=== PATIENT | female | born 1965 | race Caucasian/White ===

== ENCOUNTER 2017-07-16 11:43 | Observation (INO) ==
--- NOTE | 2017-07-16 12:23 | Emergency Department Note ---
Disposition Clinical Impression: Severe hypothyroidism Disposition: Admitted As Inpatient Condition: Fair Referrals: NONE,PCP [Primary Care Provider] - Forms: ED Satisfaction Letter, Work/School Release Time of Disposition: 14:30 Dizziness HPI - General Chief Complaint: ED General Medical Stated Complaint: High blood pressure Time Seen by Provider: 07/16/17 11:45 Source: patient, family, EMS Mode of arrival: EMS Limitations: no limitations Vital Signs Reviewed: Yes - History of Present Illness HPI Narrative: Kaya Fischer is a 52 year old female presenting with progressive dizziness, weakness, and fatigue of one week duration. She states that the symptoms are especially bad when she stands. The family has been using a wrist blood pressure cuff to measure her pressure, and has found it to be in the 200s systolic. She admits nausea and chills, but denies chest pain, shortness of breath, vomiting, fevers, diaphoresis, and headache. It has been at least 7 years since she's seen a primary care doctor, and the only medication she takes is metformin. She does have a diagnosis of hypothyroidism but has not taken medication for it for years. - Related Data Home Medications Medication Instructions Recorded Confirmed metFORMIN [Glucophage] 500 - 1,000 mg PO BID 07/16/17 07/16/17 Allergies Allergy/AdvReac Type Severity Reaction Status Date / Time lisinopril AdvReac Chest Pain Verified 07/16/17 11:59 All systems ED: reviewed and negative except as stated. Constitutional: Reports: chills, weakness. Denies: fever Cardiovascular: Denies: chest pain, palpitations, dyspnea on exertion Respiratory: Denies: cough Gastrointestinal: Reports: nausea. Denies: abdominal pain, vomiting Neurological: Reports: weakness. Denies: headache, numbness, paresthesias, confusion Endocrine: Reports: fatigue Past Medical History - Past Medical History Medical history: Reports: diabetes, hypertension, renal disease, thyroid disease Psychiatric history: Reports: no psych history - Social History Smoking Status: Never smoker Smokeless Tobacco Status: No Alcohol use: Reports: none Drug use: Reports: none Physical Exam - General Limitations: no limitations General appearance: alert, in no apparent distress - Head Head exam: atraumatic, normocephalic - Respiratory Respiratory exam: Present: normal lung sounds bilaterally. Absent: respiratory distress, accessory muscle use - Cardiovascular Cardiovascular exam: Present: regular rate, normal rhythm, normal heart sounds, +S1, +S2 - Abdominal Exam Abdominal exam: Present: soft, Non-Tender - Neurological Exam Neurological exam: Present: alert, oriented X3, CN II-XII intact. Absent: motor sensory deficit - Psychiatric Psychiatric exam: Present: normal affect, normal mood - Skin Skin exam: Present: warm, dry Course Course Narrative: Patient presents with several days of worsening weakness and dizziness. Suspect that the 200+ systolic blood pressures that the family reported are due to inaccurate readings of the home cuff, as pressures have been in the 170s-low 180s both here in the ER and during transport with EMS. Unclear etiology on presentation. Initiated workup with CBC, CMP, BNP, TSH, troponin, EKG, urinalysis, CXR, and noncon head CT. TSH was elevated to 142.14. Other significant findings include Hgb to 8.9 and Cr to 1.28. Severe hypothyroidism is the most likely cause of the patient's symptoms. Case was discussed with the admitting hospitalist, who accepted the patient. Vital Signs Temperature 98 F 07/16/17 11:46 Pulse Rate 72 07/16/17 11:46 Respiratory Rate 18 07/16/17 11:46 Blood Pressure 173/101 07/16/17 11:46 O2 Sat by Pulse Oximetry 100 07/16/17 11:46 Temperature 98 F 07/16/17 11:46 Pulse Rate 60 07/16/17 16:30 Respiratory Rate 18 07/16/17 16:30 Blood Pressure 159/106 07/16/17 16:30 O2 Sat by Pulse Oximetry 99 07/16/17 16:30 Oxygen Delivery Oxygen Delivery Room Air Dizziness - Medical Records Medical records reviewed: Yes I reviewed the patient's medical records. - Lab Data Lab results reviewed: Yes I reviewed the patient's lab results. Result diagrams: 07/16/17 12:43 07/16/17 12:43 Lab Results 07/16/17 07/16/17 07/16/17 Range/Units 12:43 12:43 12:43 WBC 8.1 (4.3-11.1) K/mcL RBC 3.92 (3.82-4.97) M/mcL Hgb 8.9 L (11.5-15.4) g/dL Hct 29.1 L (35.3-44.9) % MCV 74.2 L (83.0-100.0) fL MCH 22.7 L (28.0-33.3) pg MCHC 30.6 L (31.6-35.5) g/dL RDW 17.8 H (11.5-14.5) % Plt Count 355 (140-400) K/mcL MPV 10.4 (9.4-12.4) fL Immature Gran % 0.5 (0-4) % Seg Neutrophils % 78.0 % Lymphocytes % 15.5 % Monocytes % 5.1 % Eosinophils % 0.5 % Basophils % 0.4 % Neutrophils # 6.3 (1.6-8.9) K/mcL Lymphocytes # 1.3 (0.6-4.6) K/mcL Monocytes # 0.4 (0.0-1.3) K/mcL Eosinophils # 0.0 (0.0-0.6) K/mcL Basophils # 0.0 (0.0-0.2) K/mcL Sodium 136 (136-145) mEq/L Potassium 4.5 (3.5-5.1) mEq/L Chloride 99 (98-107) mEq/L Carbon Dioxide 27 (23-29) mEq/L BUN 12 (6-20) mg/dL Creatinine 1.28 H (0.60-1.20) mg/dL Est GFR ( Amer) 53 L (> 60) Est GFR (Non-Af Amer) 44 L (> 60) BUN/Creatinine Ratio 9 (6-26) Glucose 125 H (70-105) mg/dL Calculated Osmolality 283 (280-300) Calcium 10.0 (8.6-10.3) mg/dL Total Bilirubin 0.4 (0.3-1.0) mg/dL AST 28 (13-39) Units/L ALT 9 (7-52) Units/L Alkaline Phosphatase 67 (34-104) Units/L Troponin I < 0.03 (< 0.04) ng/mL B-Natriuretic Peptide 34 (Less than 100) pg/mL Serum Total Protein 8.3 (6.4-8.9) g/dL Albumin 4.4 (3.5-5.7) g/dL Globulin 3.9 H (2.4-3.5) g/dL Albumin/Globulin Ratio 1.1 (1.1-2.2) TSH (0.340-5.600) mcIU/mL Urine Color (Yellow) Urine Clarity (Clear) Urine pH (5.0-8.0) pH Units Ur Specific [place] (1.010-1.025) Urine Protein (Neg-Trace) mg/dL Urine Glucose (UA) (Normal) mg/dL Urine Ketones (Negative) mg/dL Urine Blood (Negative) Urine Nitrite (Negative) Urine Bilirubin (Negative) Urine Urobilinogen (Normal) mg/dL Ur Leukocyte Esterase (Negative) Urine Microscopic RBC (0-3) per hpf Urine Microscopic WBC (0-3) per hpf Ur Squamous Epith Cells (None-Few) per lpf Urine Bacteria (None-Few) per hpf Hyaline Casts (None-Few) per lpf Ur Culture Indicated? (NO) 07/16/17 07/16/17 Range/Units 12:43 13:25 WBC (4.3-11.1) K/mcL RBC (3.82-4.97) M/mcL Hgb (11.5-15.4) g/dL Hct (35.3-44.9) % MCV (83.0-100.0) fL MCH (28.0-33.3) pg MCHC (31.6-35.5) g/dL RDW (11.5-14.5) % Plt Count (140-400) K/mcL MPV (9.4-12.4) fL Immature Gran % (0-4) % Seg Neutrophils % % Lymphocytes % % Monocytes % % Eosinophils % % Basophils % % Neutrophils # (1.6-8.9) K/mcL Lymphocytes # (0.6-4.6) K/mcL Monocytes # (0.0-1.3) K/mcL Eosinophils # (0.0-0.6) K/mcL Basophils # (0.0-0.2) K/mcL Sodium (136-145) mEq/L Potassium (3.5-5.1) mEq/L Chloride (98-107) mEq/L Carbon Dioxide (23-29) mEq/L BUN (6-20) mg/dL Creatinine (0.60-1.20) mg/dL Est GFR ( Amer) (> 60) Est GFR (Non-Af Amer) (> 60) BUN/Creatinine Ratio (6-26) Glucose (70-105) mg/dL Calculated Osmolality (280-300) Calcium (8.6-10.3) mg/dL Total Bilirubin (0.3-1.0) mg/dL AST (13-39) Units/L ALT (7-52) Units/L Alkaline Phosphatase (34-104) Units/L Troponin I (< 0.04) ng/mL B-Natriuretic Peptide (Less than 100) pg/mL Serum Total Protein (6.4-8.9) g/dL Albumin (3.5-5.7) g/dL Globulin (2.4-3.5) g/dL Albumin/Globulin Ratio (1.1-2.2) TSH 142.140 H (0.340-5.600) mcIU/mL Urine Color Yellow (Yellow) Urine Clarity Clear (Clear) Urine pH 7.0 (5.0-8.0) pH Units Ur Specific [place] 1.011 (1.010-1.025) Urine Protein Negative (Neg-Trace) mg/dL Urine Glucose (UA) Normal (Normal) mg/dL Urine Ketones Negative (Negative) mg/dL Urine Blood Trace H (Negative) Urine Nitrite Negative (Negative) Urine Bilirubin Negative (Negative) Urine Urobilinogen Normal (Normal) mg/dL Ur Leukocyte Esterase Negative (Negative) Urine Microscopic RBC 0-3 (0-3) per hpf Urine Microscopic WBC 0-3 (0-3) per hpf Ur Squamous Epith Cells Many H (None-Few) per lpf Urine Bacteria None Seen (None-Few) per hpf Hyaline Casts None Seen (None-Few) per lpf Ur Culture Indicated? NO (NO) - Radiology Data Radiology results reviewed: Yes I reviewed the patient's radiology results. Chest X-Ray 07/16/17 11:56 IMPRESSION: No evidence of acute cardiopulmonary disease. D/ / Marshall Barraza MD / Marshall Barraza MD Interpreting Provider: Marshall Barraza MD Head CT 07/16/17 12:15 IMPRESSION: No acute intracranial abnormality. D/ / Sindhu Antonio Cha, MD / Sindhu Antonio Cha, MD Interpreting Provider: Sindhu Antonio Cha, MD - EKG Data EKG attestation: Yes I reviewed and interpreted this EKG. EKG results narrative: Borderline sinus bradycardia Rate 59 AK 154 QRS 95 QT/QTC 426/425 Critical Care Time Critical Care Time: Yes Total Critical Care Time: 35 Attestation: Critical care time managing patient's hypertension and severe thyroid dysfunction. Attestation Statement - Attestation Attestation: Patient was seen with resident physician. I reviewed the history, physical, assessment and plan, and agree with the findings. I also personally evaluated this patient and had [id number] time with this patient. 52-year-old female presents emergency Department with worsening dizziness and lightheadedness for the last week. Worse when she stands up or sits up quickly. Physical room is spinning. No near-syncope. No syncope. Family was concerned today because he been taking her blood pressure via a wrist cough and noticed it was elevated at greater than 200. Patient states that she has been on blood pressure medicine in the past after she takes him for a while her blood pressure drops to low so she has had to discontinue. She also states that she has thyroid disorder but she is not currently taking anything for that. The only thing she says she is taking his something for her diabetes. She denies fevers or chills though the family said that she was cold earlier this morning. No dysuria no nausea vomiting or diarrhea. Physical exam vital signs are stable. Blood pressure was not severely elevated though it did qualify her for hypertension. ENT is unremarkable. Heart normal. Lungs normal. Abdomen soft obese nontender. Extremities no swelling no obvious deformities. Neurologically intact no focal deficits. Skin no rashes. Psych, flat affect. We will do workup for week and dizziness. Including head CT scan. EKG did not show any acute ischemic changes or other abnormalities to explain her symptoms. We will also be checking thyroid variety of laboratory testing to determine what causing her problems. We did consider and closely monitor her blood pressure. It did not reach a point that required treatment emergently. Patient 's TSH was markedly elevated M inserting severe hypothyroidism. I think this is likely causative of her symptoms. We discussed case and the hospitalist service agreed to accept the patient for admission for correction of her abnormalities. I agree with the resident physician assessment and plan.
[2017-07-16 13:01] LABS: Basophils % 0.4 %; Eosinophils % 0.5 %; Hematocrit 29.1 % (35.3-44.9); Hemoglobin 8.9 g/dL (11.5-15.4); Immature Granulocytes % 0.5 % (0-4); Lymphocytes # 1.3 K/mcL (0.6-4.6); Lymphocytes % 15.5 %; Mean Corpuscular HGB Conc 30.6 g/dL (31.6-35.5); Mean Corpuscular Hemoglobin 22.7 pg (28.0-33.3); Mean Corpuscular Volume 74.2 fL (83.0-100.0); Mean Platelet Volume 10.4 fL (9.4-12.4); Monocytes # 0.4 K/mcL (0.0-1.3); Monocytes % 5.1 %; Neutrophils # 6.3 K/mcL (1.6-8.9); Platelet Count 355 K/mcL (140-400); Red Blood Count 3.92 M/mcL (3.82-4.97); Red Cell Distribution Width 17.8 % (11.5-14.5)
[2017-07-16 13:17] LABS: Alanine Aminotransferase 9 Units/L (7-52); Albumin 4.4 g/dL (3.5-5.7); Albumin/Globulin Ratio 1.1 (1.1-2.2); Alkaline Phosphatase 67 Units/L (34-104); Aspartate Amino Transferase 28 Units/L (13-39); BUN/Creatinine Ratio 9 (6-26); Bilirubin,Total 0.4 mg/dL (0.3-1.0); Blood Urea Nitrogen 12 mg/dL (6-20); Carbon Dioxide 27 mEq/L (23-29); Chloride 99 mEq/L (98-107); Globulin 3.9 g/dL (2.4-3.5); Glucose 125 mg/dL (70-105); Osmolality,Calculated 283 (280-300); Potassium 4.5 mEq/L (3.5-5.1); Sodium 136 mEq/L (136-145); Total Protein 8.3 g/dL (6.4-8.9); Troponin I < 0.03 ng/mL (< 0.04); eGFR For African Americans 53 (> 60); eGFR For Non-African Americans 44 (> 60)
[2017-07-16 13:55] LABS: Bilirubin,Urine Negative (Negative); Blood,Urine Trace (Negative); Clarity,Urine Clear (Clear); Color,Urine Yellow (Yellow); Glucose,Urine (UA) Normal (Normal); Ketones,Urine Negative (Negative); Leukocyte Esterase,Urine Negative (Negative); Nitrite,Urine Negative (Negative); Protein,Urine Negative (Neg-Trace); Specific Gravity,Urine 1.011 (1.010-1.025); Urobilinogen,Urine Normal (Normal)
[2017-07-16 13:59] LABS: Bacteria,Urine None Seen per hpf (None-Few); Hyaline Casts,Urine None Seen per lpf (None-Few); RBC,Urine 0-3 per hpf (0-3); Squamous Epithelial Cell,Urine Many per lpf (None-Few); WBC,Urine 0-3 per hpf (0-3)
[2017-07-16] MEDS ORDERED: Dextrose Gel 15 GM/37.5 ML TUBE PO PRN ×2 (16:58)
[2017-07-16] MEDS ORDERED: Naloxone 0.4 MG/ML INJ IVP PRN (16:58)
[2017-07-16] MEDS ORDERED: D5% in Water 1,000 ML IVC PRN (16:58)
[2017-07-16] MEDS ORDERED: *HR* Dextrose 50 % in Water (Syg) 50 ML SYRINGE IVP PRN (16:58)
--- NOTE | 2017-07-16 17:08 | Internal Med History&Physical ---
Addendum entered and electronically signed by Jhonny Arita 07/16/17 19:06: Synthroid 50 mcg IVP now, then daily. Transition to oral synthroid prior to discharge Original Note: <Jhonny Arita - Last Filed: 07/16/17 17:38> Date of Encounter: 07/16/17 Time of Encounter: 17:06 Internal Medicine - H&P: HPI Chief complaint: weakness, fatigue, dizziness, hypothyroidism Admitted From: Home Plans for Post Hospital Care: Home History of present illness: Ms. Fischer is a 52 year old female with a PMH of DM, HTN, stage III renal disease and hypothyroidism. She presents to [facility] today with 1 week history of progressive dizziness, weakness and fatigue. She states that her symptoms are aggravated by activity. She reports that she feels worse when she stands. Additionally, she is reporting systolic blood pressure in the 200s which is what prompted her to seek care in the ED today. She denies fever, chest pain, shortness of breath, nausea, vomiting, diaphoresis or extremity swelling/pain. She admits to fatigue, chills, and excessive sleeping pattern sometimes sleeping for almost 2 days. She states that she has had hypothyroidism for quite some time but has not taken Synthroid for approximately the last 7-8 years. She does not have a PCP or coordinator volunteer services. Workup in the ED today and a TSH of 142.140. Past Med Surg Social Fam HX - Past Medical History Medical history: diabetes, hypertension, renal disease, thyroid disease Psychiatric history: no psych history - Social History Smoking Status: Never smoker Smokeless Tobacco Status: No Alcohol use: none Drug use: none - Family History Mother Hx Family Cardiac Disorders: Yes (CAD) Internal Medicine - H&P: Meds metFORMIN [Glucophage] 500 - 1,000 mg PO BID 07/16/17 [History] 3 Allergy/AdvReac Type Severity Reaction Status Date / Time lisinopril AdvReac Chest Pain Verified 07/16/17 11:59 All Systems PM: A 10-system review of systems was performed and is negative for pertinent findings except as documented above in the HPI. - Constitutional Constitutional: chills, fatigue, lethargy, weakness - Cardiovascular Cardiovascular ROS IM: no chest pain, no diaphoresis, no dyspnea, no lightheadedness, no palpitations, no syncope - Respiratory Respiratory: no cough, no dyspnea, no wheezing, no excessive phlegm production - Gastrointestinal Gastrointestinal: no abdominal pain, no diarrhea, no hematemesis, no hematochezia, no melena, no nausea, no vomiting - Genitourinary Genitourinary: no change in urinary stream, no dysuria, no flank pain, no hematuria - Musculoskeletal Musculoskeletal ROS IM: no numbness, no tingling - Integumentary Integumentary IM: no rash, no unusual bruising - Neurological Neurological ROS: dizziness, weakness - Constitutional Vitals: Temp Pulse Resp BP Pulse Ox 98 F 60 18 159/106 99 07/16/17 11:46 07/16/17 16:30 07/16/17 16:30 07/16/17 16:30 07/16/17 16:30 General appearance: Present: cooperative, A&O X 3, morbidly obese, no acute distress, answers questions appropriately Exam: Lethargic - Head Head exam: Present: atraumatic, normocephalic - Eye Eye exam: Present: EOMI, PERRL - Neck Neck exam general surgery: Present: supple, trachea midline. Absent: lymphadenopathy - Respiratory Respiratory exam: Present: CTAB. Absent: accessory muscle use, rales, rhonchi, wheezes - Cardiovascular Cardiovascular exam: Present: bradycardia, RRR, +S1, +S2. Absent: diastolic murmur, gallop, rubs, systolic murmur - GI/Abdominal GI/Abdominal exam: Present: hypoactive bowel sounds, normal bowel sounds, soft, no peritoneal signs. Absent: distended, tenderness - Extremities Exam Extremities exam: Present: joint swelling, normal capillary refill, normal inspection, radial pulses palpable and symmetrical. Absent: tenderness - Neurological Exam Neurological exam: Present: alert, oriented X3, strengths equal and symetr throughout. Absent: facial droop, speech deficit - Skin Skin exam: Present: dry, intact Additional comments: Cool Internal Med - H&P Results - Labs CBC & Chem 7: 07/16/17 12:43 07/16/17 12:43 Labs: Short CBC 07/16/17 Range/Units 12:43 WBC 8.1 (4.3-11.1) K/mcL Hgb 8.9 L (11.5-15.4) g/dL Hct 29.1 L (35.3-44.9) % Plt Count 355 (140-400) K/mcL Neutrophils # 6.3 (1.6-8.9) K/mcL BMP 07/16/17 12:43 Sodium 136 Potassium 4.5 Chloride 99 Carbon Dioxide 27 BUN 12 Creatinine 1.28 H Glucose 125 H Calcium 10.0 Cardiac Enzymes 07/16/17 Range/Units 12:43 Troponin I < 0.03 (< 0.04) ng/mL Liver Function 07/16/17 Range/Units 12:43 Total Bilirubin 0.4 (0.3-1.0) mg/dL AST 28 (13-39) Units/L ALT 9 (7-52) Units/L Alkaline Phosphatase 67 (34-104) Units/L Albumin 4.4 (3.5-5.7) g/dL Urine 07/16/17 Range/Units 13:25 Urine Color Yellow (Yellow) Urine Clarity Clear (Clear) Urine pH 7.0 (5.0-8.0) pH Units Ur Specific [place] 1.011 (1.010-1.025) Urine Protein Negative (Neg-Trace) mg/dL Urine Glucose (UA) Normal (Normal) mg/dL - EKG Data -: EKG Interpreted by Myself EKG shows normal: sinus rhythm Rate: bradycardia - EKG Data EKG comments: SB, no st elevation or depression. NC 154, QRS95, QT/QTC 426/425 07/16/17 17:12 - Impressions ITS Impressions Chest X-Ray 07/16/17 11:56 IMPRESSION: No evidence of acute cardiopulmonary disease. D/ / Marshall Barraza MD / Marshall Barraza MD Interpreting Provider: Marshall Barraza MD Head CT 07/16/17 12:15 IMPRESSION: No acute intracranial abnormality. D/ / Sindhu Antonio Cha, MD / Sindhu Antonio Cha, MD Interpreting Provider: Sindhu Antonio Cha, MD - Assessment and plan (1) Severe hypothyroidism Current Visit: Yes Status: Acute Assessment and plan: Presents today with a one-week history of profound dizziness, weakness and fatigue. She is mildly lethargic but overall alert and oriented 3. Has a history of primary hypothyroidism. However, she reports that she has not been taking her thyroid medication for at least the last 8 years. She does not have a PCP and does not follow with an coordinator volunteer services and appears to be very negligent in regards to self-care. As of my assessment the patient is alert and oriented 3 but somewhat lethargic however, she is able to participate in the examination. Per ECG tracing monitor and auscultation the patient is bradycardic, S1, S2. TSH 142.140 Free T4 now Closely monitor neuro status Resume synthroid Continuous tele, and Spo2 monitoring CBCD, CMP in the am (2) DM (diabetes mellitus) Current Visit: Yes Status: Acute Assessment and plan: Sliding scale insulin coverage Before meals at bedtime Accu-Cheks with diabetic diet Qualifiers: Diabetes mellitus type: type 2 Diabetes mellitus lobsterman insulin use: without alf use Diabetes mellitus complication status: without complication Qualified Code(s): E11.9 - Type 2 diabetes mellitus without complications (3) HTN (hypertension) Current Visit: Yes Status: Acute Assessment and plan: History of hypertension. Does not take medication at home. Today's SBP has been as high as 170s. However most current blood pressure 159/106. Here today for myxedema. At this time I will refrain from placing her on antihypertensive medications. Continue to monitor hemodynamic status and add antihypertensives if needed Qualifiers: Hypertension type: essential hypertension Qualified Code(s): I10 - Essential (primary) hypertension (4) CKD (chronic kidney disease) stage 3, GFR 30-59 ml/min Current Visit: Yes Status: Acute Assessment and plan: History of CKD stage III. 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 Also reporting she does not follow with a PCP. No baseline creatinine on file. Today's creatinine 1.28 and GFR 44. CMP in the morning (5) DVT prophylaxis Current Visit: Yes Status: Acute Assessment and plan: Heparin 5000 units SC BID (6) Anemia Current Visit: Yes Status: Acute Assessment and plan: Presents today with a microcytic hypochromic anemia. Hemoglobin 8.9. Denies any bleeding and is currently hemodynamically stable. 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 B-12 and folate now CBC D in the morning Qualifiers: Anemia type: unspecified type Qualified Code(s): D64.9 - Anemia, unspecified - Time Spent With Patient Total time spent is greater than 50% in coordination of care (as documented) at patient's floor/unit and/or counseling patient: Greater than 35 minutes <DavidFlo T - Last Filed: 07/17/17 00:32> Date of Encounter: 07/17/17 Internal Medicine - H&P: HPI History of present illness: Ms. Fischer is a 52 year old female All Systems PM: A 10-system review of systems was performed and is negative for pertinent findings except as documented above in the HPI. - Constitutional Vitals: Temp Pulse Resp BP Pulse Ox 98.1 F 64 16 173/95 96 07/16/17 19:13 07/16/17 19:13 07/16/17 19:13 07/16/17 19:13 07/16/17 19:13 Internal Med - H&P Results - Labs CBC & Chem 7: 07/16/17 12:43 07/16/17 12:43 - Attending Attestation The patient was independently examined and her available records, labs and tests were reviewed. I agree with the ORDER PICKER's A&P. - Assessment and plan (1) Severe hypothyroidism Current Visit: Yes Status: Acute (2) DM (diabetes mellitus) Current Visit: Yes Status: Acute Qualifiers: Diabetes mellitus type: type 2 Diabetes mellitus alf insulin use: without alf use Diabetes mellitus complication status: without complication Qualified Code(s): E11.9 - Type 2 diabetes mellitus without complications (3) HTN (hypertension) Current Visit: Yes Status: Acute Qualifiers: Hypertension type: essential hypertension Qualified Code(s): I10 - Essential (primary) hypertension (4) CKD (chronic kidney disease) stage 3, GFR 30-59 ml/min Current Visit: Yes Status: Acute (5) DVT prophylaxis Current Visit: Yes Status: Acute (6) Anemia Current Visit: Yes Status: Acute Qualifiers: Anemia type: unspecified type Qualified Code(s): D64.9 - Anemia, unspecified - Time Spent With Patient Total time spent is greater than 50% in coordination of care (as documented) at patient's floor/unit and/or counseling patient:
[2017-07-16] MEDS: *HR* Heparin 5,000 UNIT/ML VIAL SQ SCH (18:14)
[2017-07-16] MEDS: Levothyroxine Sodium 100 MCG VIAL IVP SCH (19:23)
[2017-07-16] MEDS: Insulin LISPRO 300 UNITS/3 ML VIAL SQ SCH (21:18)
[2017-07-17 04:21] LABS: Basophils % 0.4 %; Eosinophils # 0.1 K/mcL (0.0-0.6); Eosinophils % 1.2 %; Hematocrit 26.2 % (35.3-44.9); Immature Granulocytes % 0.1 % (0-4); Lymphocytes # 1.6 K/mcL (0.6-4.6); Lymphocytes % 24.1 %; Mean Corpuscular HGB Conc 30.5 g/dL (31.6-35.5); Mean Corpuscular Hemoglobin 22.3 pg (28.0-33.3); Mean Corpuscular Volume 73.2 fL (83.0-100.0); Mean Platelet Volume 10.5 fL (9.4-12.4); Monocytes # 0.5 K/mcL (0.0-1.3); Neutrophils # 4.5 K/mcL (1.6-8.9); Platelet Count 316 K/mcL (140-400); Red Blood Count 3.58 M/mcL (3.82-4.97); Red Cell Distribution Width 17.8 % (11.5-14.5); Segmented Neutrophils % 67.2 %
[2017-07-17 04:36] LABS: Albumin/Globulin Ratio 1.1 (1.1-2.2); Bilirubin,Total 0.3 mg/dL (0.3-1.0); Calcium 9.6 mg/dL (8.6-10.3); Globulin 3.5 g/dL (2.4-3.5); Potassium 3.5 mEq/L (3.5-5.1); Total Protein 7.5 g/dL (6.4-8.9)
[2017-07-17] MEDS: *HR* Heparin 5,000 UNIT/ML VIAL SQ SCH ×2 (06:02→17:14)
[2017-07-17] MEDS: Levothyroxine Sodium 100 MCG VIAL IVP SCH (06:03)
[2017-07-17] MEDS ORDERED: Levothyroxine Sodium 100 MCG VIAL IVP ONE (08:25)
[2017-07-17] MEDS: Insulin LISPRO 300 UNITS/3 ML VIAL SQ SCH ×4 (08:35→22:00)
[2017-07-17] MEDS: 0.9 % Sodium Chloride 1,000 ML IVC SCH ×2 (08:36→22:02)
--- NOTE | 2017-07-17 13:04 | Internal Med Progress Note ---
Date of Encounter: 07/17/17 Time of Encounter: 12:36 - Assessment and plan (1) Severe hypothyroidism Current Visit: Yes Status: Acute Assessment and plan: clinically improving increase to levothyroxine 75cmg IV qdaily continue tele monitoring will closely monitor BMP, O2 sat will repeat thyroid function tests after pt has received IV Levothyroxine for a couple of days will transition to PO Levothyroxine on discharge. (2) DM (diabetes mellitus) Current Visit: Yes Status: Acute Assessment and plan: Sliding scale insulin algorithm monitor FS and BG ADA diet Qualifiers: Diabetes mellitus type: type 2 Diabetes mellitus manager long term care insulin use: without intermediate use Diabetes mellitus complication status: without complication Qualified Code(s): E11.9 - Type 2 diabetes mellitus without complications (3) HTN (hypertension) Current Visit: Yes Status: Acute Assessment and plan: BP within acceptable range reported history of hypertension however not on any antihypertensive agents will continue to monitor Qualifiers: Hypertension type: essential hypertension Qualified Code(s): I10 - Essential (primary) hypertension (4) CKD (chronic kidney disease) stage 3, GFR 30-59 ml/min Current Visit: Yes Status: Acute Assessment and plan: Reported history of CKD unclear of baseline creatinine will start gentle IV fluids closely monitor renal function avoid nephrotoxic agents (5) DVT prophylaxis Current Visit: Yes Status: Acute Assessment and plan: Heparin SQ (6) Anemia Current Visit: Yes Status: Acute Assessment and plan: H&H low but acceptable no acute bleeding reported at this time will continue to closely monitor Qualifiers: Anemia type: unspecified type Qualified Code(s): D64.9 - Anemia, unspecified - Time Spent With Patient Total time spent is greater than 50% in coordination of care (as documented) at patient's floor/unit and/or counseling patient: - Subjective Interval history: Patient seen and examined with family present at bedside. Pt resting in bed and reports of feeling better compared to previous day. States she has not seen a physician in over 8 years. Denies any dizziness, lightheadness, chest pain, sob at this time. - Constitutional Vitals: Temp Pulse Resp BP Pulse Ox 98.8 F 64 18 110/70 94 07/17/17 11:00 07/17/17 11:00 07/17/17 11:00 07/17/17 11:00 07/17/17 11:00 General appearance: Present: cooperative, A&O X 3, morbidly obese, no acute distress, answers questions appropriately - Head Head exam: Present: atraumatic, normocephalic - Eye Eye exam: Present: conjuntiva pink, sclera anicteric (mild periorbital edema bilaterally) - Respiratory Respiratory exam: Present: CTAB. Absent: accessory muscle use, rales, rhonchi, wheezes - Cardiovascular Cardiovascular exam: Present: RRR, +S1, +S2. Absent: diastolic murmur, gallop, rubs, systolic murmur - GI/Abdominal GI/Abdominal exam: Present: normal bowel sounds, soft, no peritoneal signs. Absent: distended, tenderness - Extremities Exam Extremities exam: Present: warm, radial pulses palpable and symmetrical. Absent : calf tenderness, pedal edema - Neurological Exam Neurological exam: Present: oriented X3 Internal Medicine: Result - Labs CBC & Chem 7: 07/17/17 03:11 07/17/17 03:11 Labs: Short CBC 07/17/17 Range/Units 03:11 WBC 6.7 (4.3-11.1) K/mcL Hgb 8.0 L (11.5-15.4) g/dL Hct 26.2 L (35.3-44.9) % Plt Count 316 (140-400) K/mcL Neutrophils # 4.5 (1.6-8.9) K/mcL BMP 07/17/17 03:11 Sodium 135 L Potassium 3.5 Chloride 100 Carbon Dioxide 34 H BUN 13 Creatinine 1.39 H Glucose 163 H Calcium 9.6 Liver Function 07/17/17 Range/Units 03:11 Total Bilirubin 0.3 (0.3-1.0) mg/dL AST 19 (13-39) Units/L ALT 7 (7-52) Units/L Alkaline Phosphatase 62 (34-104) Units/L Albumin 4.0 (3.5-5.7) g/dL Consult Discharge Plan - Plan Referrals: Aguilar Billy MD [Non-Partnered Physician] -
[2017-07-18 06:00] LABS: Basophils % 0.5 %; Eosinophils # 0.2 K/mcL (0.0-0.6); Hematocrit 26.2 % (35.3-44.9); Immature Granulocytes % 0.4 % (0-4); Lymphocytes # 2.9 K/mcL (0.6-4.6); Lymphocytes % 36.8 %; Mean Corpuscular HGB Conc 30.5 g/dL (31.6-35.5); Mean Corpuscular Hemoglobin 22.9 pg (28.0-33.3); Mean Corpuscular Volume 74.9 fL (83.0-100.0); Mean Platelet Volume 10.5 fL (9.4-12.4); Monocytes # 0.6 K/mcL (0.0-1.3); Neutrophils # 4.2 K/mcL (1.6-8.9); Nucleated Red Blood Cells 0.3 /100 WBC (0); Platelet Count 330 K/mcL (140-400); Red Cell Distribution Width 17.8 % (11.5-14.5); Segmented Neutrophils % 53.3 %
[2017-07-18] MEDS: *HR* Heparin 5,000 UNIT/ML VIAL SQ SCH ×2 (06:17→17:24)
[2017-07-18] MEDS: Levothyroxine Sodium 100 MCG VIAL IVP SCH (06:19)
[2017-07-18 06:22] LABS: Calcium 9.3 mg/dL (8.6-10.3); Phosphorous 2.9 mg/dL (2.7-4.5); Potassium 3.6 mEq/L (3.5-5.1)
[2017-07-18] MEDS: Insulin LISPRO 300 UNITS/3 ML VIAL SQ SCH ×4 (09:13→20:25)
[2017-07-18] MEDS: 0.9 % Sodium Chloride 1,000 ML IVC SCH (12:33)
--- NOTE | 2017-07-18 16:37 | Internal Med Progress Note ---
Date of Encounter: 07/18/17 Time of Encounter: 16:35 - Assessment and plan (1) Severe hypothyroidism Current Visit: Yes Status: Acute Assessment and plan: clinically improving continue Levothyroxine 75cmg IV qdaily continue tele monitoring will closely monitor BMP, O2 sat will repeat thyroid function tests after pt has received IV Levothyroxine for a couple of days will transition to PO Levothyroxine on discharge. (2) DM (diabetes mellitus) Current Visit: Yes Status: Acute Assessment and plan: Sliding scale insulin algorithm monitor FS and BG ADA diet Qualifiers: Diabetes mellitus type: type 2 Diabetes mellitus long distance operator insulin use: without long distance operator use Diabetes mellitus complication status: without complication Qualified Code(s): E11.9 - Type 2 diabetes mellitus without complications (3) HTN (hypertension) Current Visit: Yes Status: Acute Assessment and plan: BP within acceptable range reported history of hypertension however not on any antihypertensive agents will continue to monitor Qualifiers: Hypertension type: essential hypertension Qualified Code(s): I10 - Essential (primary) hypertension (4) CKD (chronic kidney disease) stage 3, GFR 30-59 ml/min Current Visit: Yes Status: Acute Assessment and plan: Reported history of CKD unclear of baseline creatinine continue gentle IV fluids closely monitor renal function avoid nephrotoxic agents (5) DVT prophylaxis Current Visit: Yes Status: Acute Assessment and plan: Heparin SQ (6) Anemia Current Visit: Yes Status: Acute Assessment and plan: H&H low but acceptable no acute bleeding reported at this time will continue to closely monitor Qualifiers: Anemia type: unspecified type Qualified Code(s): D64.9 - Anemia, unspecified - Time Spent With Patient Total time spent is greater than 50% in coordination of care (as documented) at patient's floor/unit and/or counseling patient: - Subjective Interval history: Pt seen and examined at bedside. Reports of feeling better compared to previous day. States dizziness is almost resolved. reports of taking metformin at home but has been using her family member's medication Pt remains weak, will obtain PT evaluation - Constitutional Vitals: Temp Pulse Resp BP Pulse Ox 97.9 F 58 20 102/60 97 07/18/17 13:31 07/18/17 13:31 07/18/17 13:31 07/18/17 13:31 07/18/17 13:31 General appearance: Present: cooperative, A&O X 3, morbidly obese, no acute distress, answers questions appropriately - Head Head exam: Present: atraumatic, normocephalic - Eye Eye exam: Present: conjuntiva pink, sclera anicteric - Respiratory Respiratory exam: Present: CTAB. Absent: respiratory distress, wheezes - Cardiovascular Cardiovascular exam: Present: bradycardia, +S1, +S2 - GI/Abdominal GI/Abdominal exam: Present: normal bowel sounds, soft, no peritoneal signs. Absent: distended, tenderness - Extremities Exam Extremities exam: Present: warm, radial pulses palpable and symmetrical. Absent : calf tenderness, tenderness - Neurological Exam Neurological exam: Present: oriented X3 Internal Medicine: Result - Labs CBC & Chem 7: 07/18/17 05:27 07/18/17 05:27 Labs: Short CBC 07/18/17 Range/Units 05:27 WBC 7.8 (4.3-11.1) K/mcL Hgb 8.0 L (11.5-15.4) g/dL Hct 26.2 L (35.3-44.9) % Plt Count 330 (140-400) K/mcL Neutrophils # 4.2 (1.6-8.9) K/mcL BMP 07/18/17 05:27 Sodium 137 Potassium 3.6 Chloride 104 Carbon Dioxide 27 BUN 15 Creatinine 1.46 H Glucose 125 H Calcium 9.3 Consult Discharge Plan - Plan Referrals: Aguilar reyes MD [Non-Partnered Physician] - 07/28/17 2:30 pm (Please follow up as schedule... Or call if you are not able to make the appt. [phone] Please bring your insurance and photo ID)
--- NOTE | 2017-07-19 00:19 | Electrocardiograph Report ---
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
[2017-07-19] MEDS: 0.9 % Sodium Chloride 1,000 ML IVC SCH (03:06)
[2017-07-19] MEDS: Levothyroxine Sodium 100 MCG VIAL IVP SCH (05:16)
[2017-07-19] MEDS: *HR* Heparin 5,000 UNIT/ML VIAL SQ SCH (05:16)
[2017-07-19 07:00] LABS: Basophils % 0.5 %; Eosinophils # 0.2 K/mcL (0.0-0.6); Eosinophils % 2.5 %; Hemoglobin 7.9 g/dL (11.5-15.4); Immature Granulocytes % 0.3 % (0-4); Lymphocytes # 2.4 K/mcL (0.6-4.6); Lymphocytes % 32.3 %; Mean Corpuscular HGB Conc 30.4 g/dL (31.6-35.5); Mean Corpuscular Hemoglobin 22.6 pg (28.0-33.3); Mean Corpuscular Volume 74.5 fL (83.0-100.0); Mean Platelet Volume 10.6 fL (9.4-12.4); Monocytes # 0.6 K/mcL (0.0-1.3); Monocytes % 8.1 %; Neutrophils # 4.1 K/mcL (1.6-8.9); Platelet Count 291 K/mcL (140-400); Red Blood Count 3.49 M/mcL (3.82-4.97); Red Cell Distribution Width 17.9 % (11.5-14.5); Segmented Neutrophils % 56.3 %
[2017-07-19 07:41] LABS: BUN/Creatinine Ratio 12 (6-26); Blood Urea Nitrogen 15 mg/dL (6-20); Calcium 9.1 mg/dL (8.6-10.3); Carbon Dioxide 26 mEq/L (23-29); Chloride 105 mEq/L (98-107); Glucose 115 mg/dL (70-105); Osmolality,Calculated 286 (280-300); Phosphorous 3.2 mg/dL (2.7-4.5); Potassium 3.7 mEq/L (3.5-5.1); Sodium 137 mEq/L (136-145); eGFR For African Americans 53 (> 60); eGFR For Non-African Americans 44 (> 60)
[2017-07-19] MEDS: Insulin LISPRO 300 UNITS/3 ML VIAL SQ SCH ×2 (10:01→12:24)
[2017-07-19 11:08] LABS: Estimated Average Glucose 160 mg/dl; Hemoglobin A1C 7.2 %
[2017-07-19 11:14] VITALS: BP 146/87
--- NOTE | 2017-07-19 13:11 | Discharge Summary ---
- NOTES TO OUTPATIENT PROVIDER Notes to Outpatient Provider: Please monitor thyroid function tests. She was noted to have TSH of 142.14 and free T4 <0.25. She was started on Levothyroxine 150mcg. Please repeat Thyroid function tests as outpatient. Also needs endocrinology evaluation. HbA1C: 7.2. Pt will be discharged with Metformin 500mg PO BID. Please address her DM medications after your evaluation. f/u anemia workup. Date of Encounter: 07/19/17 Time of Encounter: 13:09 - Discharge Diagnosis (1) Severe hypothyroidism Priority: Primary Status: Acute (2) DM (diabetes mellitus) Priority: Secondary Status: Acute Qualifiers: Diabetes mellitus type: type 2 Diabetes mellitus snf insulin use: without adjunct faculty for medical terminology use Diabetes mellitus complication status: without complication Qualified Code(s): E11.9 - Type 2 diabetes mellitus without complications (3) HTN (hypertension) Priority: Secondary Status: Chronic Qualifiers: Hypertension type: essential hypertension Qualified Code(s): I10 - Essential (primary) hypertension (4) CKD (chronic kidney disease) stage 3, GFR 30-59 ml/min Priority: Secondary Status: Chronic (5) DVT prophylaxis Priority: Secondary Status: Acute (6) Anemia Priority: Secondary Status: Chronic Qualifiers: Anemia type: unspecified type Qualified Code(s): D64.9 - Anemia, unspecified Hospital course: Ms. Fischer is a 52 year old female with PMH of DM, HTN, CKD who was admitted for severe hypothyroidism. Pt was found to have elevated TSH levels and reported of not seeing a physician for the last 8 years. She reported of taking family member's metformin. She reported history of hypertension but was not on any antihypertensive agents. Her BP remained within acceptable range despite her being off antihypertensive agents. She was started on IV levothyroxine. She responded well to therapy with complete resolution of her presenting symptoms. at this time she is back to her baseline and medically stable for discharge. Pt will be discharged to home today with follow up with PCP. Pt and family in agreement with the discharge care and plan. Discharge discussed with: patient, family, nurse - Time Spent with Patient Total time spent providing and/or coordinating discharge services: Less than 30 minutes - Discharge Medications Prescriptions: Levothyroxine [Synthroid] 150 mcg PO DAILY #30 tablet metFORMIN [Glucophage] 500 mg PO BIDWM #60 tablet Home Medications: Levothyroxine [Synthroid] 150 mcg PO DAILY #30 tablet 07/19/17 [Rx] metFORMIN [Glucophage] 500 mg PO BIDWM #60 tablet 07/19/17 [Rx] Allergies/Adverse Reactions: 3 Allergy/AdvReac Type Severity Reaction Status Date / Time lisinopril AdvReac Chest Pain Verified 07/16/17 11:59 Date of admission: 07/16/17 17:23 Primary care physician: PCP NONE Discharging clinician: Yaima Lux Anticipated date of discharge: 07/19/17 - Constitutional Vitals: Temp Pulse Resp BP Pulse Ox 98.1 F 71 18 146/87 97 07/19/17 11:00 07/19/17 11:00 07/19/17 11:00 07/19/17 11:00 07/19/17 11:00 General appearance: Present: cooperative, A&O X 3, morbidly obese, no acute distress, answers questions appropriately - Head Head exam: Present: atraumatic, normocephalic - Eye Eye exam: Present: conjuntiva pink, sclera anicteric - Respiratory Respiratory exam: Present: CTAB. Absent: accessory muscle use, rales, rhonchi, wheezes - Cardiovascular Cardiovascular exam: Present: RRR, +S1, +S2. Absent: diastolic murmur, gallop, rubs, systolic murmur - GI/Abdominal GI/Abdominal exam: Present: normal bowel sounds, soft, no peritoneal signs. Absent: distended, tenderness - Extremities Exam Extremities exam: Present: warm, radial pulses palpable and symmetrical. Absent : calf tenderness, pedal edema - Neurological Exam Neurological exam: Present: oriented X3 - Psychiatric Psychiatric exam: Present: normal affect, normal mood - Patient Status Disposition: Home, Self-Care Condition: Good Functional capacity at discharge: independent ambulation Overall status at discharge: patient is back to baseline - Discharge Instructions Instructions: Hypothyroidism (DC), Diabetes Mellitus Type 2 in Adults (DC), Chronic Hypertension (DC) Follow Up With: [facility] [place] [Provider Group] (Please have your PCP refer you to the [facility] to schedule an appointment, unless your PCP feels comfortable managing you.) Aguilar Billy MD [Non-Partnered Physician] - 07/28/17 2:30 pm (Please follow up as schedule... Or call if you are not able to make the appt. [phone] Please bring your insurance and photo ID) Additional Instructions: Please follow up with your primary care physician within five days after your discharge from the hospital. Please continue to take Levothyroxine and Metformin as prescribed. - Diet and Activity Activity: resume usual activities as tolerated Diet: low salt diet
[2017-07-19 13:35] LABS: % Iron Saturation 4 % (15-50); Ferritin < 8 ng/ml (10-120); Iron 17 mcg/dL (50-170); Transferrin 345 mg/dL (203-362)
== END 2017-07-19 15:03 | disposition home or self-care (01) ==
LOC: EMEROO 11:43 → 2ANU 11:43
PROVIDERS: ADMIT Nurse Practitioner; ATTEND Internal Medicine

== ENCOUNTER 2018-07-13 09:50 | Observation (INO) ==
--- NOTE | 2018-07-13 10:14 | Emergency Department Note ---
Disposition Clinical Impression: Weakness, Left facial numbness, Vision changes Disposition: Admitted As Inpatient Condition: Good Time of Disposition: 20:58 General Adult HPI - General Chief complaint: ED Headache Stated complaint: Hypertension Time Seen by Provider: 07/13/18 09:55 Source: patient Limitations: no limitations - History of Present Illness Pain Scale: 3 - Related Data Home Medications Medication Instructions Recorded Confirmed Lisinopril 5 mg PO DAILY 07/02/18 07/02/18 Previous Rx's Medication Instructions Recorded RX: Levothyroxine [Synthroid] 150 mcg PO DAILY #30 tablet 07/19/17 RX: metFORMIN [Glucophage] 500 mg PO BIDWM #60 tablet 07/19/17 RX: GuaiFENesin/Dextromethorphan 10 ml PO QID PRN #240 ml 07/02/18 [Tussin Dm Syrup] Allergies Allergy/AdvReac Type Severity Reaction Status Date / Time Iodinated Contrast- Oral and Allergy See Verified 07/13/18 14:53 IV Dye Comments Past Medical History - Past Medical History Medical history: Reports: diabetes, hypertension, thyroid disease Psychiatric history: Reports: no psych history - Social History Smoking Status: Never smoker Smokeless Tobacco Status: No Alcohol use: Reports: none Drug use: Reports: none Physical Exam - General Limitations: no limitations General appearance: alert, in no apparent distress Course Vital Signs Temperature 97.8 F 07/13/18 09:54 Pulse Rate 79 07/13/18 09:54 Respiratory Rate 18 07/13/18 09:54 Blood Pressure 188/122 07/13/18 09:54 O2 Sat by Pulse Oximetry 98 07/13/18 09:54 Temperature 98.8 F 07/13/18 18:32 Pulse Rate 81 07/13/18 18:32 Respiratory Rate 18 07/13/18 18:32 Blood Pressure 144/65 07/13/18 18:32 O2 Sat by Pulse Oximetry 98 07/13/18 18:32 Oxygen Delivery Oxygen Delivery Room Air Medical Decision Making - Lab Data Result diagrams: 07/13/18 10:19 07/13/18 10:19 Lab Results 07/13/18 07/13/18 07/13/18 Range/Units 10:10 10:17 10:19 WBC 10.3 (4.3-11.1) K/mcL RBC 4.60 (3.82-4.97) M/mcL Hgb 8.9 L (11.5-15.4) g/dL Hct 29.8 L (35.3-44.9) % MCV 64.8 L (83.0-100.0) fL MCH 19.3 L (28.0-33.3) pg MCHC 29.9 L (31.6-35.5) g/dL RDW 20.1 H (11.5-14.5) % Plt Count 545 H (140-400) K/mcL MPV 9.4 (9.4-12.4) fL Immature Gran % 0.4 (0-4) % Seg Neutrophils % 73.7 % Lymphocytes % 18.6 % Monocytes % 6.2 % Eosinophils % 0.8 % Basophils % 0.3 % Neutrophils # 7.6 (1.6-8.9) K/mcL Lymphocytes # 1.9 (0.6-4.6) K/mcL Monocytes # 0.6 (0.0-1.3) K/mcL Eosinophils # 0.1 (0.0-0.6) K/mcL Basophils # 0.0 (0.0-0.2) K/mcL Platelet Estimate Slight increase H (Normal) Immature Plt Fraction 2.3 (1.1-6.1) % Hypochromasia Present A (Not Present) Microcytosis Present A (Not Present) Ovalocytes 1+ A (Not Present) ESR (0-15) mm/hr PT 10.5 (9.4-12.1) Seconds INR 0.9 APTT 32.6 (26.0-36.0) Seconds Sodium (136-145) mEq/L Potassium (3.5-5.1) mEq/L Chloride (98-107) mEq/L Carbon Dioxide (23-29) mEq/L BUN (6-20) mg/dL Creatinine (0.60-1.20) mg/dL Est GFR ( Amer) (> 60) Est GFR (Non-Af Amer) (> 60) BUN/Creatinine Ratio (6-26) Glucose (70-105) mg/dL POC Glucose 92 (70-99) mg/dL Est Mean Plasma Glucose mg/dl Hemoglobin A1c ( - 5.6) % Calculated Osmolality (280-300) Calcium (8.6-10.3) mg/dL Magnesium (1.6-2.6) mg/dL Troponin I (< 0.04) ng/mL C-Reactive Protein (Less than 10) mg/L TSH (0.340-5.600) mcIU/mL Urine Color (Yellow) Urine Clarity (Clear) Urine pH (5.0-8.0) pH Units Ur Specific Hailey (1.010-1.025) Urine Protein (Neg-Trace) mg/dL Urine Glucose (UA) (Normal) mg/dL Urine Ketones (Negative) mg/dL Urine Blood (Negative) Urine Nitrite (Negative) Urine Bilirubin (Negative) Urine Urobilinogen (Normal) mg/dL Ur Leukocyte Esterase (Negative) Ur Culture Indicated? (NO) 07/13/18 07/13/18 07/13/18 Range/Units 10:19 10:19 10:19 WBC (4.3-11.1) K/mcL RBC (3.82-4.97) M/mcL Hgb (11.5-15.4) g/dL Hct (35.3-44.9) % MCV (83.0-100.0) fL MCH (28.0-33.3) pg MCHC (31.6-35.5) g/dL RDW (11.5-14.5) % Plt Count (140-400) K/mcL MPV (9.4-12.4) fL Immature Gran % (0-4) % Seg Neutrophils % % Lymphocytes % % Monocytes % % Eosinophils % % Basophils % % Neutrophils # (1.6-8.9) K/mcL Lymphocytes # (0.6-4.6) K/mcL Monocytes # (0.0-1.3) K/mcL Eosinophils # (0.0-0.6) K/mcL Basophils # (0.0-0.2) K/mcL Platelet Estimate (Normal) Immature Plt Fraction (1.1-6.1) % Hypochromasia (Not Present) Microcytosis (Not Present) Ovalocytes (Not Present) ESR 95 H (0-15) mm/hr PT (9.4-12.1) Seconds INR APTT (26.0-36.0) Seconds Sodium 137 (136-145) mEq/L Potassium 4.0 (3.5-5.1) mEq/L Chloride 102 (98-107) mEq/L Carbon Dioxide 24 (23-29) mEq/L BUN 8 (6-20) mg/dL Creatinine 0.64 (0.60-1.20) mg/dL Est GFR ( Amer) > 60 (> 60) Est GFR (Non-Af Amer) > 60 (> 60) BUN/Creatinine Ratio 13 (6-26) Glucose 110 H (70-105) mg/dL POC Glucose (70-99) mg/dL Est Mean Plasma Glucose 171 mg/dl Hemoglobin A1c 7.6 H ( - 5.6) % Calculated Osmolality 283 (280-300) Calcium 9.6 (8.6-10.3) mg/dL Magnesium 1.4 L (1.6-2.6) mg/dL Troponin I < 0.03 (< 0.04) ng/mL C-Reactive Protein 30 H (Less than 10) mg/L TSH 0.680 (0.340-5.600) mcIU/mL Urine Color (Yellow) Urine Clarity (Clear) Urine pH (5.0-8.0) pH Units Ur Specific Hailey (1.010-1.025) Urine Protein (Neg-Trace) mg/dL Urine Glucose (UA) (Normal) mg/dL Urine Ketones (Negative) mg/dL Urine Blood (Negative) Urine Nitrite (Negative) Urine Bilirubin (Negative) Urine Urobilinogen (Normal) mg/dL Ur Leukocyte Esterase (Negative) Ur Culture Indicated? (NO) 07/13/18 Range/Units 12:25 WBC (4.3-11.1) K/mcL RBC (3.82-4.97) M/mcL Hgb (11.5-15.4) g/dL Hct (35.3-44.9) % MCV (83.0-100.0) fL MCH (28.0-33.3) pg MCHC (31.6-35.5) g/dL RDW (11.5-14.5) % Plt Count (140-400) K/mcL MPV (9.4-12.4) fL Immature Gran % (0-4) % Seg Neutrophils % % Lymphocytes % % Monocytes % % Eosinophils % % Basophils % % Neutrophils # (1.6-8.9) K/mcL Lymphocytes # (0.6-4.6) K/mcL Monocytes # (0.0-1.3) K/mcL Eosinophils # (0.0-0.6) K/mcL Basophils # (0.0-0.2) K/mcL Platelet Estimate (Normal) Immature Plt Fraction (1.1-6.1) % Hypochromasia (Not Present) Microcytosis (Not Present) Ovalocytes (Not Present) ESR (0-15) mm/hr PT (9.4-12.1) Seconds INR APTT (26.0-36.0) Seconds Sodium (136-145) mEq/L Potassium (3.5-5.1) mEq/L Chloride (98-107) mEq/L Carbon Dioxide (23-29) mEq/L BUN (6-20) mg/dL Creatinine (0.60-1.20) mg/dL Est GFR ( Amer) (> 60) Est GFR (Non-Af Amer) (> 60) BUN/Creatinine Ratio (6-26) Glucose (70-105) mg/dL POC Glucose (70-99) mg/dL Est Mean Plasma Glucose mg/dl Hemoglobin A1c ( - 5.6) % Calculated Osmolality (280-300) Calcium (8.6-10.3) mg/dL Magnesium (1.6-2.6) mg/dL Troponin I (< 0.04) ng/mL C-Reactive Protein (Less than 10) mg/L TSH (0.340-5.600) mcIU/mL Urine Color Yellow (Yellow) Urine Clarity Clear (Clear) Urine pH 6.5 (5.0-8.0) pH Units Ur Specific [place] 1.009 L (1.010-1.025) Urine Protein Negative (Neg-Trace) mg/dL Urine Glucose (UA) Normal (Normal) mg/dL Urine Ketones Negative (Negative) mg/dL Urine Blood Negative (Negative) Urine Nitrite Negative (Negative) Urine Bilirubin Negative (Negative) Urine Urobilinogen Normal (Normal) mg/dL Ur Leukocyte Esterase Negative (Negative) Ur Culture Indicated? NO (NO) Attestation Statement - Attestation Attestation: I examined this patient and my medical decision-making was reviewed with the Resident Physician. I agree with the documented findings, disposition and treatment plan as described except to the extent set forth below. [id number] time provided Patient presents to the emergency department with neurologic symptoms that started 3 hours ago. She complains of feeling dizzy and having subjective facial tingling. She recently reports labile blood sugars and hypertension. She appears to have general malaise on exam. Stroke alert activated given the temporal symptoms
--- NOTE | 2018-07-13 10:16 | Emergency Department Note ---
Disposition Clinical Impression: Weakness, Left facial numbness, Vision changes Disposition: Admitted As Inpatient Condition: Good Forms: ED Satisfaction Letter Time of Disposition: 13:12 Neuro HPI - General Chief Complaint: ED Headache Stated Complaint: Hypertension Time Seen by Provider: 07/13/18 09:55 Source: patient Mode of arrival: private vehicle Limitations: no limitations Nursing Notes Reviewed: Yes Vital Signs Reviewed: Yes - History of Present Illness HPI Narrative: Patient is a 53-year-old female with history of diabetes, hypothyroidism and hyp ertension presenting with generalized weakness and neurological changes. Last known well was 7 AM, when she had abrupt onset of left-sided blurry vision with left-sided change in sensation described as a numbness and decreased sensation which started at the middle of her face and progress to the entire left side of her face. She states this is continued since that time and has been constant. She denies any prior history of similar symptoms in the past. Prior to 7 AM she had no symptoms of facial numbness or vision changes. She has had generalized malaise and weakness since yesterday, she denies any upper or lower extremity weakness, numbness or further sensation changes. She also states she has a slight headache on the left side which began around 7 AM as well. She described this to be a dull sensation. She denies any chest pain, shortness of breath, recent trauma or injury, she is not on any anticoagulation medicine, she denies any abdominal pain, nausea or vomiting. Of note, starting yesterday her blood sugar was running in the 240s and her blood pressure is running around 180 systolic. She states this is unusual for her. - Related Data Home Medications: Home Medications Medication Instructions Recorded Confirmed Lisinopril 5 mg PO DAILY 07/02/18 07/02/18 Previous Rx's Medication Instructions Recorded Levothyroxine [Synthroid] 150 mcg PO DAILY #30 tablet 07/19/17 metFORMIN [Glucophage] 500 mg PO BIDWM #60 tablet 07/19/17 GuaiFENesin/Dextromethorphan 10 ml PO QID PRN #240 ml 07/02/18 [Tussin Dm Syrup] Allergies/Adverse Reactions: Allergies Allergy/AdvReac Type Severity Reaction Status Date / Time No Known Allergies Allergy Verified 07/02/18 11:43 All systems ED: reviewed and negative except as stated. Review of Systems: As Per HPI Constitutional: Denies: fever, chills ENT ED: Denies: congestion Cardiovascular: Denies: chest pain, palpitations, dyspnea on exertion Respiratory: Denies: cough, dyspnea, wheezes Gastrointestinal: Denies: abdominal pain, nausea, vomiting, diarrhea Genitourinary: Denies: urgency, dysuria, frequency Neurological: Reports: headache, weakness, numbness. Denies: confusion, abnormal gait Psychiatric: Denies: anxiety, depression Endocrine: Denies: fatigue Hematological/Lymphatic: Denies: easy bleeding Past Medical History - Past Medical History Attestation: Yes The following information was validated with the patient. Source: patient Medical history: Reports: diabetes, hypertension, thyroid disease Psychiatric history: Reports: no psych history - Social History Smoking Status: Never smoker Smokeless Tobacco Status: No Alcohol use: Reports: none Drug use: Reports: none Physical Exam - General Limitations: no limitations General appearance: alert, in no apparent distress - Head Head exam: atraumatic, normocephalic, normal inspection - Eye Eye exam: Present: normal appearance, PERRL, EOMI - ENT ENT exam: normal exam, normal oropharynx, mucous membranes moist - Neck Neck exam: Present: normal inspection, full ROM, trachea midline - Chest Chest inspection: Present: normal inspection, symmetric chest wall rise - Respiratory Respiratory exam: Present: normal lung sounds bilaterally - Cardiovascular Cardiovascular exam: Present: regular rate, normal rhythm, normal heart sounds - Abdominal Exam Abdominal exam: Present: soft, Non-Tender. Absent: tenderness, distention, guarding, rebound, rigidity - Extremities Exam Extremities exam: Present: normal inspection, full ROM. Absent: tenderness, pedal edema - Neurological Exam Neurological exam: Present: alert, oriented X3 - Expanded Neurological Exam Patient oriented to: Present: person, place, time Speech: Present: fluid speech Cranial nerves: EOM function (II, III, IV, ): Normal, facial sensation (V): Abnormal Left, facial palsy (VII): Normal, spinal accessory function (XI): Normal, tongue deviation (XII): Normal Cerebellar function: finger to nose: Normal, heel to valentine: Normal Motor strength - LUE: 5/5 Motor strength - RUE: 5/5 Motor strength - LLE: 5/5 Motor strength - RLE: 5/5 Upper motor neuron exam: dejon neglect: Absent bilaterally, pronator drift: Absent bilaterally Sensory exam upper extremity: light touch: Normal Sensory exam lower extremity: light touch: Normal Coma Scale Eye Opening: Spontaneous Coma Scale Motor Response: Obeys Commands Coma Scale Verbal Response: Oriented Coma Scale Total: 15 Course Course Narrative: On presentation, patient states that last while was just at 7 AM, this was about 3 hours prior to patient's arrival, given neurological symptoms are new onset for the patient which include left-sided numbness and decreased sensation with left sided headache and left sided vision changes, stroke alert was called at 1 012. - Consultations Consultation #1: Spoke with radiology at 1035, states that CT of the head shows no acute intracranial changes. Consultation #2: Neurology via telemedicine, states this point in time that he does not feel as though presentation represents stroke like symptoms with negative CT of the head, Stroke alert cancelled Time: 10:49 Vital Signs Temperature 97.8 F 07/13/18 09:54 Pulse Rate 79 07/13/18 09:54 Respiratory Rate 18 07/13/18 09:54 Blood Pressure 188/122 07/13/18 09:54 O2 Sat by Pulse Oximetry 98 07/13/18 09:54 Temperature 97.8 F 07/13/18 09:54 Pulse Rate 74 07/13/18 11:42 Respiratory Rate 18 07/13/18 11:42 Blood Pressure 146/85 07/13/18 11:42 O2 Sat by Pulse Oximetry 100 07/13/18 11:42 Oxygen Delivery Oxygen Delivery Room Air Neuro Symptoms/Deficit - MDM Narrative Medical decision making narrative: Patient is a 53-year-old female presenting with generalized weakness. On initial examination, patient stated that 3 hours prior to arrival she began to have acute onset left sided vision changes as well as left-sided facial numbness, no motor changes or lower extremity or upper extremity changes. Initial GCS was 15, NIH of 1. A stroke alert was called, with CT performed being read by radiology as no acute intracranial changes. Neurology via telemedicine was called for further patient follow-up, following their ex amination and recommendations, stroke alert was canceled, they stated that at this point transferred to [facility] was a not necessary, and further workup was warranted at [place]. Per their recommendations, patient is not a TPA candidate. CBC does show continued anemia at 8.9, however has been as low as 7 in the past. Appears to be about patient's baseline. She denies any current bleeding symptoms. BMP, troponin, TSH are all within normal limits. Patient is otherwise remained stable here in the ER. Repeat NIH remained of 1, at 1300. GCS of 15. Discussed admission with the patient, agrees with admission at this point in time. I did discuss this case with the hospitalist, who recommends replacing magnesium as that is 1.5, this is been replaced with 2 g of magnesium. Patient is remained stable be admitted at this time. - Medical Records Medical records reviewed: Yes I reviewed the patient's medical records. - Lab Data Lab results reviewed: Yes I reviewed the patient's lab results. Result diagrams: 07/13/18 10:19 07/13/18 10:19 Lab Results 07/13/18 07/13/18 07/13/18 Range/Units 10:10 10:19 10:19 WBC 10.3 (4.3-11.1) K/mcL RBC 4.60 (3.82-4.97) M/mcL Hgb 8.9 L (11.5-15.4) g/dL Hct 29.8 L (35.3-44.9) % MCV 64.8 L (83.0-100.0) fL MCH 19.3 L (28.0-33.3) pg MCHC 29.9 L (31.6-35.5) g/dL RDW 20.1 H (11.5-14.5) % Plt Count 545 H (140-400) K/mcL MPV 9.4 (9.4-12.4) fL Immature Gran % 0.4 (0-4) % Seg Neutrophils % 73.7 % Lymphocytes % 18.6 % Monocytes % 6.2 % Eosinophils % 0.8 % Basophils % 0.3 % Neutrophils # 7.6 (1.6-8.9) K/mcL Lymphocytes # 1.9 (0.6-4.6) K/mcL Monocytes # 0.6 (0.0-1.3) K/mcL Eosinophils # 0.1 (0.0-0.6) K/mcL Basophils # 0.0 (0.0-0.2) K/mcL Platelet Estimate Slight increase H (Normal) Immature Plt Fraction 2.3 (1.1-6.1) % Hypochromasia Present A (Not Present) Microcytosis Present A (Not Present) Ovalocytes 1+ A (Not Present) ESR (0-15) mm/hr PT 10.5 (9.4-12.1) Seconds INR 0.9 APTT 32.6 (26.0-36.0) Seconds Sodium 137 (136-145) mEq/L Potassium 4.0 (3.5-5.1) mEq/L Chloride 102 (98-107) mEq/L Carbon Dioxide 24 (23-29) mEq/L BUN 8 (6-20) mg/dL Creatinine 0.64 (0.60-1.20) mg/dL Est GFR ( Amer) > 60 (> 60) Est GFR (Non-Af Amer) > 60 (> 60) BUN/Creatinine Ratio 13 (6-26) Glucose 110 H (70-105) mg/dL Calculated Osmolality 283 (280-300) Calcium 9.6 (8.6-10.3) mg/dL Magnesium 1.4 L (1.6-2.6) mg/dL Troponin I < 0.03 (< 0.04) ng/mL C-Reactive Protein 30 H (Less than 10) mg/L TSH 0.680 (0.340-5.600) mcIU/mL Urine Color (Yellow) Urine Clarity (Clear) Urine pH (5.0-8.0) pH Units Ur Specific [place] (1.010-1.025) Urine Protein (Neg-Trace) mg/dL Urine Glucose (UA) (Normal) mg/dL Urine Ketones (Negative) mg/dL Urine Blood (Negative) Urine Nitrite (Negative) Urine Bilirubin (Negative) Urine Urobilinogen (Normal) mg/dL Ur Leukocyte Esterase (Negative) Ur Culture Indicated? (NO) 07/13/18 07/13/18 Range/Units 10:19 12:25 WBC (4.3-11.1) K/mcL RBC (3.82-4.97) M/mcL Hgb (11.5-15.4) g/dL Hct (35.3-44.9) % MCV (83.0-100.0) fL MCH (28.0-33.3) pg MCHC (31.6-35.5) g/dL RDW (11.5-14.5) % Plt Count (140-400) K/mcL MPV (9.4-12.4) fL Immature Gran % (0-4) % Seg Neutrophils % % Lymphocytes % % Monocytes % % Eosinophils % % Basophils % % Neutrophils # (1.6-8.9) K/mcL Lymphocytes # (0.6-4.6) K/mcL Monocytes # (0.0-1.3) K/mcL Eosinophils # (0.0-0.6) K/mcL Basophils # (0.0-0.2) K/mcL Platelet Estimate (Normal) Immature Plt Fraction (1.1-6.1) % Hypochromasia (Not Present) Microcytosis (Not Present) Ovalocytes (Not Present) ESR 95 H (0-15) mm/hr PT (9.4-12.1) Seconds INR APTT (26.0-36.0) Seconds Sodium (136-145) mEq/L Potassium (3.5-5.1) mEq/L Chloride (98-107) mEq/L Carbon Dioxide (23-29) mEq/L BUN (6-20) mg/dL Creatinine (0.60-1.20) mg/dL Est GFR ( Amer) (> 60) Est GFR (Non-Af Amer) (> 60) BUN/Creatinine Ratio (6-26) Glucose (70-105) mg/dL Calculated Osmolality (280-300) Calcium (8.6-10.3) mg/dL Magnesium (1.6-2.6) mg/dL Troponin I (< 0.04) ng/mL C-Reactive Protein (Less than 10) mg/L TSH (0.340-5.600) mcIU/mL Urine Color Yellow (Yellow) Urine Clarity Clear (Clear) Urine pH 6.5 (5.0-8.0) pH Units Ur Specific [place] 1.009 L (1.010-1.025) Urine Protein Negative (Neg-Trace) mg/dL Urine Glucose (UA) Normal (Normal) mg/dL Urine Ketones Negative (Negative) mg/dL Urine Blood Negative (Negative) Urine Nitrite Negative (Negative) Urine Bilirubin Negative (Negative) Urine Urobilinogen Normal (Normal) mg/dL Ur Leukocyte Esterase Negative (Negative) Ur Culture Indicated? NO (NO) - Radiology Data Radiology results reviewed: Yes I reviewed the patient's radiology results. Chest X-Ray 07/13/18 10:08 IMPRESSION: No acute cardiopulmonary disease. D/ / Chon Porter MD / Chon Porter MD Interpreting Provider: Chon Porter MD Head CT 07/13/18 10:10 IMPRESSION: No acute intracranial process identified. The above findings were discussed with Dr. Smiley at 10:35 a.m. on 07/13/2018. D/ / Dewayne Bird MD / Dewayne Bird MD Interpreting Provider: Dewayne Bird MD - EKG Data EKG attestation: Yes I reviewed and interpreted this EKG. EKG results narrative: EKG performed at 1040 with ventricular rate of 78, regular rhythm, normal axis, no ST segment elevation, depression, there is T-wave inversion in lead 3, and V6 which appears unchanged from previous performed in 07/16/2017 NIH Stroke Scale - Level of Consciousness LOC: Alert - LOC Questions LOC Questions: Answers both correctly - LOC Commands LOC Commands: Performs both correctly - Best Gaze Best Gaze: Normal - Visual Visual: No visual loss - Facial Palsy Facial Palsy: Normal - Motor Arms Motor Arm-Left: No drift for 10 seconds Motor Arm-Right: No drift for 10 seconds - Motor Legs Motor Leg-Left: No drift for 5 seconds Motor Leg-Right: No drift for 5 seconds - Limb Ataxia Limb Ataxia: Absent of affected limb too weak to perform exam - Sensory Sensory: Mild to moderate loss, "not as sharp" - Best Language Best Language: No aphasia - Dysarthria Dysarthria: Normal - Extinction and Inattention Extinction and Inattention: Normal - NIHSS Total Score NIHSS Total Score: 1 TPA Checklist - LKW: 3-4.5 hrs Add. Warnings/Precautions Patient/family understanding: The patient/family members have been counseled and understood the risk, benefit, and alternatives of treatment. S.B.A.R. - S.B.A.R. Situation: Demographics, MOA Background: Presenting Complaint, Relevant PMH, Meds, & Allergies Assessment: Vital Signs, Course and respsone to treatment, Exam Concerns, Patient/Family Expectation, Pertinant Lab Results, Outstanding Labs Recommendation: Barrier(s) to disposition, Recommendation based on pending studies, treatments, or consults Alondra Report Given to: Dr. Alfredo Cantu Repor Time: 13:12 (ACCEPTED)
[2018-07-13] MEDS ORDERED: Aspirin 81 MG TAB.CHEW PO ONE (10:26)
[2018-07-13 10:27] LABS: Basophils % 0.3 %; Hemoglobin 8.9 g/dL (11.5-15.4); Immature Granulocytes % 0.4 % (0-4); Mean Platelet Volume 9.4 fL (9.4-12.4)
[2018-07-13 10:29] LABS: Eosinophils # 0.1 K/mcL (0.0-0.6); Eosinophils % 0.8 %; Hematocrit 29.8 % (35.3-44.9); Immature Platelets 2.3 % (1.1-6.1); Lymphocytes # 1.9 K/mcL (0.6-4.6); Lymphocytes % 18.6 %; Mean Corpuscular HGB Conc 29.9 g/dL (31.6-35.5); Mean Corpuscular Hemoglobin 19.3 pg (28.0-33.3); Mean Corpuscular Volume 64.8 fL (83.0-100.0); Monocytes # 0.6 K/mcL (0.0-1.3); Monocytes % 6.2 %; Neutrophils # 7.6 K/mcL (1.6-8.9); Platelet Count 545 K/mcL (140-400); Red Cell Distribution Width 20.1 % (11.5-14.5); Segmented Neutrophils % 73.7 %
[2018-07-13 10:46] LABS: INR 0.9; Prothrombin Time 10.5 Seconds (9.4-12.1)
[2018-07-13 10:48] LABS: Activated Partial Thrombo Time 32.6 Seconds (26.0-36.0)
[2018-07-13] MEDS ORDERED: 0.9 % Sodium Chloride 1,000 ML IVC ONE (11:00)
[2018-07-13 11:02] LABS: Hypochromasia Present (Not Present); Microcytosis Present (Not Present); Ovalocytes 1+ (Not Present)
[2018-07-13 11:23] LABS: BUN/Creatinine Ratio 13 (6-26); Blood Urea Nitrogen 8 mg/dL (6-20); C-Reactive Protein 30 mg/L (Less than 10); Calcium 9.6 mg/dL (8.6-10.3); Carbon Dioxide 24 mEq/L (23-29); Chloride 102 mEq/L (98-107); Glucose 110 mg/dL (70-105); Magnesium 1.4 mg/dL (1.6-2.6); Osmolality,Calculated 283 (280-300); Sodium 137 mEq/L (136-145); eGFR For Non-African Americans > 60 (> 60)
[2018-07-13 11:24] LABS: Troponin I < 0.03 ng/mL (< 0.04)
[2018-07-13 12:52] LABS: Bilirubin,Urine Negative (Negative); Blood,Urine Negative (Negative); Clarity,Urine Clear (Clear); Color,Urine Yellow (Yellow); Glucose,Urine (UA) Normal (Normal); Ketones,Urine Negative (Negative); Leukocyte Esterase,Urine Negative (Negative); Nitrite,Urine Negative (Negative); PH,Urine 6.5 pH Units (5.0-8.0); Protein,Urine Negative (Neg-Trace); Specific Gravity,Urine 1.009 (1.010-1.025); Urobilinogen,Urine Normal (Normal)
[2018-07-13] MEDS ORDERED: Ondansetron 4 MG/2 ML VIAL IVP PRN (14:05)
[2018-07-13] MEDS ORDERED: Acetaminophen 325 MG TABLET PO PRN (14:05)
[2018-07-13] MEDS ORDERED: traMADol 50 MG TABLET PO PRN (14:05)
[2018-07-13] MEDS ORDERED: Mag Hydrox/Al Hydrox/Simeth 30 ML UDC PO PRN (14:05)
[2018-07-13] MEDS ORDERED: Naloxone 0.4 MG/ML INJ IVP PRN (14:05)
[2018-07-13] MEDS ORDERED: Dextrose Gel 15 GM/37.5 ML TUBE PO PRN ×2 (14:10)
[2018-07-13] MEDS ORDERED: *HR* Dextrose 50 % in Water (Syg) 50 ML SYRINGE IVP PRN (14:10)
[2018-07-13] MEDS ORDERED: D5% in Water 1,000 ML IVC PRN (14:10)
--- NOTE | 2018-07-13 14:20 | Internal Med History&Physical ---
Date of Encounter: 07/13/18 Time of Encounter: 13:30 Internal Medicine - H&P: HPI Chief complaint: Left-sided tingling of the face and headache Admitted From: Home Plans for Post Hospital Care: Home History of present illness: Ms. Fischer is a 53 year old female with a past medical history of diabetes mellitus type 2 not on insulin, hypothyroidism on Synthroid, essential hypertension who presented to the ER with chief complaint of left-sided facial numbness as well as left-sided headache which woke the patient up early this morning. The patient states that last night when she went to bed her blood sugar was in the 240s range which is high for her and her blood pressure was in the 180s systolic. These both readings are unusual for her but she went to bed regardless and woke up at around 7 AM with left-sided facial numbness and headache. She describes the headache as 8/10 in severity and is now better with improvement of her blood pressure, located on the left side of the face and did not radiate to her jaw or down to her neck. She did take some [id number] pain medications but the headache did not improve. This was associated with tingling on the left side of the lips and cheek which has since gotten slightly better but not completely eliminated. When the patient came to the ER she also denied any weakness in the arms or legs. A stroke alert was called and the patient was evaluated by [facility] tele- stroke. Patient did undergo a CT scan which did not show any acute infarcts, a normal chest x-ray, negative flu test for a and B influenza and EKG was sinus rhythm with no acute ST elevation or depression. Patient did have anemia which is chronic and microcytic in nature and also had evidence of hypomagnesemia 1.4 which was repleted. Patient does state that she has had some dizziness which started early this morning and has not completely resolved although she denies having any trouble with her gait when she walked at home or in the ER so far. She has since been placed under observation care and given the fact that she continues to have the tingling around her lips, plan is to obtain an MRI and/or consider neurology input. Patient tells me she has been compliant and not missed any of her medications Past Med Surg Social Fam HX - Past Medical History Medical history: diabetes, hypertension, thyroid disease Psychiatric history: no psych history - Social History Smoking Status: Never smoker Smokeless Tobacco Status: No Alcohol use: none Drug use: none - Family History Mother Hx Family Cardiac Disorders: Yes (CAD) - Additional Family History Additional family history: No family history significant for early stroke and her parents Internal Medicine - H&P: Meds Levothyroxine [Synthroid] 150 mcg PO DAILY #30 tablet 07/19/17 [Rx] metFORMIN [Glucophage] 500 mg PO BIDWM #60 tablet 07/19/17 [Rx] GuaiFENesin/Dextromethorphan [Tussin Dm Syrup] 10 ml PO QID PRN #240 ml 07/02/18 [Rx] Lisinopril 5 mg PO DAILY 07/02/18 [History] Allergy/AdvReac Type Severity Reaction Status Date / Time No Known Allergies Allergy Verified 07/02/18 11:43 All Systems PM: A 10-system review of systems was performed and is negative for pertinent findings except as documented above in the HPI. - Constitutional Vitals: Temp Pulse Resp BP Pulse Ox 97.8 F 74 18 146/85 100 07/13/18 09:54 07/13/18 11:42 07/13/18 11:42 07/13/18 11:42 07/13/18 11:42 Exam: GENERAL: Alert, moderate distress, cooperative EYES: PERRLA, EOMI EARS: External ears normal, canals clear OROPHARYNX: Lips, mucosa, and tongue normal. Teeth and gums normal. Oropharynx normal. NECK: No jugulovenous distention, No carotid bruits, Carotid pulse normal contour, Supple LUNGS: Lungs clear to auscultation, Good diaphragmatic excursion CARDIAC: Normal S1 and S2; no rubs, murmurs, or gallops ABDOMEN: Abdomen soft, non-tender, BS normal, No masses or organomegaly EXTREMITIES: Extremities normal, no deformities, edema, clubbing or skin discoloration. Good capillary refill., No ulcers NEURO: Gait not tested, motor exam reveals equal strength in upper and lower extremities on both sides Reflexes normal and symmetric. Sensation on the left half of the face on the left side is weaker as compared to the right side, Cranial nerves II-XII intact PULSES: 2+ radial, 2+ carotid Rest of the exam is non contributory Internal Med - H&P Results - Labs CBC & Chem 7: 07/13/18 10:19 07/13/18 10:19 Labs: Short CBC 07/13/18 Range/Units 10:19 WBC 10.3 (4.3-11.1) K/mcL Hgb 8.9 L (11.5-15.4) g/dL Hct 29.8 L (35.3-44.9) % Plt Count 545 H (140-400) K/mcL Neutrophils # 7.6 (1.6-8.9) K/mcL BMP 07/13/18 10:19 Sodium 137 Potassium 4.0 Chloride 102 Carbon Dioxide 24 BUN 8 Creatinine 0.64 Glucose 110 H Calcium 9.6 Cardiac Enzymes 07/13/18 Range/Units 10:19 Troponin I < 0.03 (< 0.04) ng/mL Urine 07/13/18 Range/Units 12:25 Urine Color Yellow (Yellow) Urine Clarity Clear (Clear) Urine pH 6.5 (5.0-8.0) pH Units Ur Specific [place] 1.009 L (1.010-1.025) Urine Protein Negative (Neg-Trace) mg/dL Urine Glucose (UA) Normal (Normal) mg/dL - EKG Data -: EKG Interpreted by Myself EKG shows normal: sinus rhythm Rate: normal - EKG Data Prior EKG available for review: yes When compared to previous EKG: there is no significant change Interpretation IM: normal EKG - Impressions ITS Impressions Chest X-Ray 07/13/18 10:08 IMPRESSION: No acute cardiopulmonary disease. D/ / Chon Porter MD / Chon Porter MD Interpreting Provider: Chon Porter MD Head CT 07/13/18 10:10 IMPRESSION: No acute intracranial process identified. The above findings were discussed with Dr. Smiley at 10:35 a.mSuri on 07/13/2018. D/ / Dewayne Bird MD / Dewayne Bird MD Interpreting Provider: Dewayne Bird MD - Diagnostic Studies CT scan - head Status: image reviewed by me (No acute strokes) - Assessment and Plan (1) Left facial numbness Current Visit: Yes Status: Acute Assessment and plan: This is new in onset and we need to rule out a stroke/TIA. Her initial workup for a stroke alert has been negative. We will obtain an MRI without contrast to rule out a definite stroke. If this is positive, consider neurologic consult. Consider obtaining an echo if the MRI results are positive. If the MRI is negative for a stroke her left-sided facial numbness could be a result of her accelerated hypertension which is now improved. Please see the plan for hypertension below for details. I will start her on baby aspirin and check a lipid panel given that she does have risk factors for stroke. (2) DM (diabetes mellitus) Current Visit: No Status: Acute Assessment and plan: Hold oral hypoglycemics. 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 I would recommend outpatient follow-up for anemia. Seems to be microcytic but since she is at her baseline and did not want to work her up in this visit. Qualifiers: Anemia type: unspecified type Qualified Code(s): D64.9 - Anemia, unspecified (4) HTN (hypertension) Current Visit: No Status: Chronic Assessment and plan: Her blood pressure on arrival was about 180 systolic. Currently it is about 1 50-160. She did take 5 mg of lisinopril in the morning which is her baseline. I will give her an additional 5 mg of lisinopril right now. If this improves her blood pressure then consider changing her to 10 mg from a baseline dose of 5 mg tomorrow morning. Qualifiers: Hypertension type: essential hypertension Qualified Code(s): I10 - Essen tial (primary) hypertension - Time Spent With Patient Total time spent is greater than 50% in coordination of care (as documented) at patient's floor/unit and/or counseling patient:65 min Greater than 35 minutes
[2018-07-13 14:36] LABS: Estimated Average Glucose 171 mg/dl; Hemoglobin A1C 7.6 %
[2018-07-13] MEDS: Insulin LISPRO 300 UNITS/3 ML VIAL SQ SCH (17:07)
[2018-07-13] MEDS: *HR* Heparin 5,000 UNIT/ML VIAL SQ SCH (17:45)
[2018-07-13] MEDS ORDERED: *HR* Heparin 5,000 UNIT/ML VIAL SQ SCH (18:00)
[2018-07-14] MEDS: *HR* Heparin 5,000 UNIT/ML VIAL SQ SCH ×2 (05:18→17:12)
[2018-07-14 05:24] LABS: Basophils % 0.4 %; Eosinophils # 0.2 K/mcL (0.0-0.6); Eosinophils % 2.2 %; Hematocrit 23.8 % (35.3-44.9); Hemoglobin 7.2 g/dL (11.5-15.4); Immature Granulocytes % 0.3 % (0-4); Lymphocytes # 2.5 K/mcL (0.6-4.6); Lymphocytes % 32.4 %; Mean Corpuscular HGB Conc 30.3 g/dL (31.6-35.5); Mean Corpuscular Hemoglobin 19.5 pg (28.0-33.3); Mean Corpuscular Volume 64.3 fL (83.0-100.0); Mean Platelet Volume 10.1 fL (9.4-12.4); Monocytes # 0.6 K/mcL (0.0-1.3); Monocytes % 7.3 %; Neutrophils # 4.5 K/mcL (1.6-8.9); Platelet Count 425 K/mcL (140-400); Red Cell Distribution Width 19.7 % (11.5-14.5); Segmented Neutrophils % 57.4 %
[2018-07-14] MEDS ORDERED: *HR* LORazepam 2 MG/ML VIAL IVP ONE (05:33)
[2018-07-14 05:43] LABS: Alanine Aminotransferase 10 Units/L (7-52); Albumin 3.1 g/dL (3.5-5.7); Albumin/Globulin Ratio 1.3 (1.1-2.2); Alkaline Phosphatase 54 Units/L (34-104); Aspartate Amino Transferase 11 Units/L (13-39); BUN/Creatinine Ratio 12 (6-26); Bilirubin,Total 0.3 mg/dL (0.3-1.0); Blood Urea Nitrogen 8 mg/dL (6-20); Carbon Dioxide 28 mEq/L (23-29); Chloride 104 mEq/L (98-107); Globulin 2.4 g/dL (2.4-3.5); Glucose 143 mg/dL (70-105); Magnesium 1.8 mg/dL (1.6-2.6); Osmolality,Calculated 285 (280-300); Potassium 3.9 mEq/L (3.5-5.1); Sodium 137 mEq/L (136-145); Total Protein 5.5 g/dL (6.4-8.9); eGFR For Non-African Americans > 60 (> 60)
[2018-07-14 05:44] LABS: Chol/HDL Ratio 3.9 (0-4.9)
[2018-07-14 05:54] LABS: Anisocytosis 2+ (Not Present); Microcytosis Present (Not Present); Platelet Estimate Increased (Normal)
[2018-07-14 08:20] LABS: % Iron Saturation 4 % (15-50); Iron 17 mcg/dL (50-170); Transferrin 277 mg/dL (203-362)
[2018-07-14 08:39] LABS: Ferritin < 8 ng/mL (10-120)
[2018-07-14] MEDS: Aspirin Enteric Coated 81 MG Tablet PO SCH (09:26)
[2018-07-14] MEDS: Insulin LISPRO 300 UNITS/3 ML VIAL SQ SCH ×3 (09:26→15:46)
[2018-07-14] MEDS ORDERED: Isovue-370 500 ML BOTTLE IVP ONE (10:52)
[2018-07-14] MEDS: MethylPREDNISolone 40 MG/ML VIAL IVP SCH ×3 (11:54→19:59)
[2018-07-14 12:54] LABS: Basophils % 0.3 %; Eosinophils # 0.2 K/mcL (0.0-0.6); Hematocrit 26.5 % (35.3-44.9); Hemoglobin 7.8 g/dL (11.5-15.4); Immature Granulocytes % 0.4 % (0-4); Lymphocytes % 26.4 %; Mean Corpuscular HGB Conc 29.4 g/dL (31.6-35.5); Mean Corpuscular Hemoglobin 19.6 pg (28.0-33.3); Mean Corpuscular Volume 66.6 fL (83.0-100.0); Mean Platelet Volume 9.5 fL (9.4-12.4); Monocytes # 0.6 K/mcL (0.0-1.3); Monocytes % 7.9 %; Neutrophils # 4.8 K/mcL (1.6-8.9); Platelet Count 422 K/mcL (140-400); Red Blood Count 3.98 M/mcL (3.82-4.97); Red Cell Distribution Width 19.6 % (11.5-14.5)
[2018-07-14 13:29] LABS: Triiodothyronine (T3) Free 2.98 pg/mL (2.50-3.90)
[2018-07-14 13:34] LABS: Anisocytosis 1+ (Not Present); Microcytosis Present (Not Present)
[2018-07-14] MEDS ORDERED: Iron Sucrose Complex 400 MG in 0.9 % Sodium Chloride 250 ML IVPB ONE (14:13)
--- NOTE | 2018-07-14 14:18 | Internal Med Progress Note ---
<Renu Johnson - Last Filed: 07/14/18 14:10> Hospitalist Progress Note - Encounter Date of Encounter: 07/14/18 Time of Encounter: 08:30 - Subjective Interval History: Ms. Tian was seen at bedside this morning. Her vitals were reviewed and she remained normotensive and afebrile overnight. She reported her left-sided numbness has resolved. Due to her underlying anemia she was asked about hematochezia or melena which she denied. She also denied having any previous colonoscopies or outpatient workup for her anemia. She had no specific complaints. He denied fever, chills, nausea, emesis, shortness of breath, chest pain or abdominal pain. - Exam Vitals: Temp Pulse Resp BP Pulse Ox 98.6 F 77 16 171/85 95 07/14/18 11:45 07/14/18 11:45 07/14/18 11:45 07/14/18 11:45 07/14/18 11:45 Exam: Gen: Vitals noted. No acute distress. Appears comfortabl, pale in color. Eyes: anicteric sclerae, moist conjunctivae; no lid-lag; no conjunctiva pallor noted HENT: Atraumatic; oropharynx clear with moist mucous membranes and no mucosal ul cerations; significant dental caries Neck: Trachea midline; supple, no thyromegaly or lymphadenopathy Cardiac: RRR, no murmur, +S1/S2. No JVD noted. Pulmonary: CTA bilaterally, no wheezes, rales or rhonchi, equal chest expansion Abdomen: soft, nontender, no guarding. No masses or hepatosplenomegaly MSK: ROM intact, no joint swelling noted Extremities: no edema, nontender calf Skin: Normal temperature, turgor; no rash, ulcers or subcutaneous nodules Neuro: moves all extremities, no focal deficits. Psych: Appropriate mood and behavior. A&Ox3 - Assessment and Plan (1) Anemia Current Visit: No Status: Chronic Assessment and Plan: Presented with left-sided facial numbness. Has history of hypothyroidism and her TSH as well as T3 and T4 were checked and are within normal limits. Noted to have significant microcytic iron deficiency anemia. At presentation yesterday her hemoglobin was 8.9 which seemed to be her baseline from a year ago. Repeat hemoglobin today was 7.2 and was further repeated later today to and it was 7.8. She also has thrombocytosis with platelet count of 545 yesterday and today is 422. Noted to have decreased iron level of 17 with decreased percent saturation of 4 Her LDH is low which makes hemolytic anemia less likely, additionally bilirubin is also within normal limits -She denies any melena or hematochezia -She is also no longer menstruating -There is concern for underlying malignancy as she has not had previous colonoscopies -Receiving iron infusion today -Strongly encouraging outpatient colonoscopy soon after discharge -Peripheral blood smear pending -We will continue to monitor her CBCs (2) Elevated C-reactive protein (CRP) Current Visit: Yes Status: Acute Assessment and Plan: Presented with nonspecific complain of left-sided numbness and MRI and CT ruled out stroke. ESR and CRP were noted to be significantly elevated. Her ESR is noted to be 95 and CRP is 30. Is not complaining of any recent injuries or recent infections. There is concern for underlying malignancy versus vasculitis Ordered CTA of the head and neck but she is allergic to iodine contrast and radiology would prefer her to be medicated prior to imaging. Due to premedication protocol her CTA of the head and neck will be delayed to tomorrow to rule out vasculitis. Blood smear is pending (3) DM (diabetes mellitus) Current Visit: No Status: Acute Assessment and Plan: Hold home oral hypoglycemics. Initiate low-dose correctional Insulin sliding scale Continue diabetic diet (4) HTN (hypertension) Current Visit: No Status: Chronic Assessment and Plan: At home she is on 5 mg of lisinopril and her blood pressure continues to remain elevated. Lisinopril has been increased to 10 mg daily with IV hydralazine when necessary ordered. (5) Left facial numbness Current Visit: Yes Status: Resolved Assessment and Plan: This is new in onset and we need to rule out a stroke/TIA. Her initial workup for a stroke alert has been negative. Her brain brain MRI did not find any acute infarct or intracranial process. There was finding of nonspecific foci of white my matter representing mild chronic small vascular ischemic changes. Her left facial numbness has resolved and could be secondary to anemia versus vasculitis CTA of the head and neck pending Anemia being treated with iron infusion DVT Prophylaxis: SCD given anemia - Time Spent with Patient Total time spent is greater than 50% in coordination of care (as documented) at patient's floor/unit and/or counseling patient: Internal Medicine: Result - Labs CBC & Chem 7: 07/14/18 12:43 07/14/18 04:58 Labs: Short CBC 07/14/18 07/14/18 Range/Units 04:58 12:43 WBC 7.8 7.6 (4.3-11.1) K/mcL Hgb 7.2 L D 7.8 L (11.5-15.4) g/dL Hct 23.8 L 26.5 L (35.3-44.9) % Plt Count 425 H 422 H (140-400) K/mcL Neutrophils # 4.5 4.8 (1.6-8.9) K/mcL BMP 07/14/18 04:58 Sodium 137 Potassium 3.9 Chloride 104 Carbon Dioxide 28 BUN 8 Creatinine 0.67 Glucose 143 H Calcium 9.0 Liver Function 07/14/18 Range/Units 04:58 Total Bilirubin 0.3 (0.3-1.0) mg/dL AST 11 L (13-39) Units/L ALT 10 (7-52) Units/L Alkaline Phosphatase 54 (34-104) Units/L Albumin 3.1 L (3.5-5.7) g/dL - ABG Interpretation ABG results: PT/INR, D-dimer PT 10.5 Seconds (9.4-12.1) 07/13/18 10:10 - Impressions Impressions Brain MRI 07/14/18 14:08 IMPRESSION: 1. No acute infarct or acute intracranial process identified. 2. Several nonspecific foci of white matter signal abnormality within the frontal lobes which may represent mild chronic small vessel ischemic changes. D/ / 07/14/2018 08:49:18 Dewayne Bird MD / dali cope Interpreting Provider: Dewayne Bird MD Consult Discharge Plan - Plan Referrals: Aguilar Billy MD [Primary Care Provider] - <Micheal Frausto - Last Filed: 07/14/18 15:08> Hospitalist Progress Note - Encounter Date of Encounter: 07/14/18 Internal Medicine: Result - Labs CBC & Chem 7: 07/14/18 12:43 07/14/18 04:58 Labs: Short CBC 07/14/18 07/14/18 Range/Units 04:58 12:43 WBC 7.8 7.6 (4.3-11.1) K/mcL Hgb 7.2 L D 7.8 L (11.5-15.4) g/dL Hct 23.8 L 26.5 L (35.3-44.9) % Plt Count 425 H 422 H (140-400) K/mcL Neutrophils # 4.5 4.8 (1.6-8.9) K/mcL BMP 07/14/18 04:58 Sodium 137 Potassium 3.9 Chloride 104 Carbon Dioxide 28 BUN 8 Creatinine 0.67 Glucose 143 H Calcium 9.0 Liver Function 07/14/18 Range/Units 04:58 Total Bilirubin 0.3 (0.3-1.0) mg/dL AST 11 L (13-39) Units/L ALT 10 (7-52) Units/L Alkaline Phosphatase 54 (34-104) Units/L Albumin 3.1 L (3.5-5.7) g/dL - ABG Interpretation ABG results: PT/INR, D-dimer PT 10.5 Seconds (9.4-12.1) 07/13/18 10:10 - Impressions Impressions Brain MRI 07/14/18 14:08 IMPRESSION: 1. No acute infarct or acute intracranial process identified. 2. Several nonspecific foci of white matter signal abnormality within the frontal lobes which may represent mild chronic small vessel ischemic changes. D/ / 07/14/2018 08:49:18 Dewayne Bird MD / dai Interpreting Provider: Dewayne Bird MD - Attending Attestation Patient seen and examined independently, including review of objective data including labs. I agree with plan of care as documented above by the resident with the following comments: Pt p/w L-sided face paresthesias. CT head and MRI brain unremarkable. Mg low; repleted. Symptoms resolved and exam this morning completely unremarkable except patient has obesity BMI 34. Does have chronic microcytic anemia; denies blood loss including no melena/hematochezia/BRBPR, and no periods. Never had colonoscopy. Previous severe hypothyroidism now improved, without corresponding improvement in anemia. Does have elevated inflammatory markers including CRP 30 and ESR 90. Unclear etiology of anemia and elevated ESR/CRP. - repeat Hb since is acute lower this AM, and type and screen - add on iron/ferritin to AM labs - will plan for iron infusion unless needs blood transfusion - check CTA head/neck/aortic arch since large vessel vasculitis, TIA, and thyroid disease are on ddx - premed w steroids for contrast - will need close outpatient colonoscopy <Renu Johnson - Last Filed: 07/14/18 14:10> (1) Anemia Qualifiers: Anemia type: iron deficiency Iron deficiency anemia type: unspecified iron deficiency Qualified Code(s): D50.9 - Iron deficiency anemia, unspecified (3) DM (diabetes mellitus) Qualifiers: Diabetes mellitus type: type 2 Diabetes mellitus senior living insulin use: without emt intermediate use Diabetes mellitus complication status: without complication Qualified Code(s): E11.9 - Type 2 diabetes mellitus without complications (4) HTN (hypertension) Qualifiers: Hypertension type: essential hypertension Qualified Code(s): I10 - Essential (primary) hypertension
[2018-07-14] MEDS ORDERED: Insulin LISPRO 300 UNITS/3 ML VIAL SQ SCH (21:00)
--- NOTE | 2018-07-14 21:16 | Electrocardiograph Report ---
[employer] Test Date: 2018-07-13 Pat Name: Kaya Fischer Department: [id number] Room: 3B13 Gender: F Pet Counselor: : 1965 Requested By: Emma Smiley Order Number: [id number] Reading MD: Go Baez Measurements Intervals [place] Rate: 78 P: 45 CO: 174 QRS: 27 QRSD: 100 T: 4 QT: 393 QTc: 448 Interpretive Statements Sinus rhythm Electronically Signed On 07-14-2018 21:14:20 EDT by oG Baez
[2018-07-15] MEDS: *HR* Heparin 5,000 UNIT/ML VIAL SQ SCH (05:45)
[2018-07-15 06:46] VITALS: BP 120/70
[2018-07-15 07:22] LABS: Hematocrit 26.3 % (35.3-44.9); Hemoglobin 7.8 g/dL (11.5-15.4); Mean Corpuscular HGB Conc 29.7 g/dL (31.6-35.5); Mean Corpuscular Hemoglobin 19.7 pg (28.0-33.3); Mean Corpuscular Volume 66.4 fL (83.0-100.0); Mean Platelet Volume 10.5 fL (9.4-12.4); Platelet Count 444 K/mcL (140-400); Red Blood Count 3.96 M/mcL (3.82-4.97); Red Cell Distribution Width 19.4 % (11.5-14.5)
[2018-07-15 07:43] LABS: BUN/Creatinine Ratio 18 (6-26); Blood Urea Nitrogen 11 mg/dL (6-20); Calcium 9.4 mg/dL (8.6-10.3); Carbon Dioxide 23 mEq/L (23-29); Chloride 104 mEq/L (98-107); Glucose 239 mg/dL (70-105); Osmolality,Calculated 289 (280-300); Potassium 3.7 mEq/L (3.5-5.1); Sodium 136 mEq/L (136-145); eGFR For Non-African Americans > 60 (> 60)
[2018-07-15] MEDS: Insulin LISPRO 300 UNITS/3 ML VIAL SQ SCH (07:43)
[2018-07-15] MEDS: Aspirin Enteric Coated 81 MG Tablet PO SCH (07:43)
--- NOTE | 2018-07-15 07:56 | Discharge Summary ---
- NOTES TO OUTPATIENT PROVIDER Notes to Outpatient Provider: 1) needs colonoscopy, 2) iron infusion and new iron tabs, 3) new ASA and lipitor, 4) hyperglycemic Date of Encounter: 07/15/18 Time of Encounter: 07:53 Hospital course: Dear Doctors, I recently had the opportunity to care for this patient during their recent hospital stay at [facility]. Kaya Fischer is a 53 F w hx obesity, DM2, HTN, hypothyroidism, who presented at time of admission with L facial numbness and L headache which woke patient from sleep. No other symptoms, and they were transient. Came to ED where stroke alert was called, head CT negative, [facility] tele-stroke evaluated patient and no intervention needed at this time. In the hospital, pt underwent MRI brain which showed only chronic microvascular changes. Due to microcytic anemia and elevated CRP/ESR, a CTA head/neck was obtained which was unremarkable except for mild atherosclerotic irregularities. She was noted to be severely iron deficient and was transfused 400 mg venofer and started on iron tablets. She will need a colonoscopy for further evaluation into her anemia. Thyroid labs were all wnl. Dx: Paresthesia concerning for TIA, hyperglycemia, iron deficiency anemia Pertinent tests/consults: CT head, MRI brain, and CTA head/neck unremarkable Follow up: PCP 1 week, needs colonoscopy Tests pending: none Med changes: - new lipitor 40 - new ASA 81 - new ferrous sulfate 325 tidac Mental status: awake, fully oriented Code status: [employer] spent on discharge: 25 minutes It has been my pleasure participating in this patient's care. Please contact me with any questions or concerns regarding their hospital stay. Sincerely, Micheal Frausto MD - Discharge Medications Prescriptions: New Aspirin Enteric Coated [Aspirin EC] 81 mg PO DAILY #30 tablet. Atorvastatin [Lipitor] 40 mg PO DAILY #30 tablet Ferrous Sulfate [Iron] 325 mg PO TIDAC #90 tablet Continue Lisinopril [Zestril] 5 mg PO DAILY Waite-3 Fatty Acids [Waite-3] 100 mg PO DAILY Metformin HCl [Glucophage] 1,000 mg PO BIDWM Levothyroxine Sodium [Levoxyl] 125 mcg PO DAILY Acetaminophen [Acetaminophen ER] 650 mg PO Q6H PRN PRN Reason: Pain Home Medications: Lisinopril [Zestril] 5 mg PO DAILY 07/02/18 [History] Acetaminophen [Acetaminophen ER] 650 mg PO Q6H PRN 07/14/18 [History] Levothyroxine Sodium [Levoxyl] 125 mcg PO DAILY 07/14/18 [History] Metformin HCl [Glucophage] 1,000 mg PO BIDWM 07/14/18 [History] Waite-3 Fatty Acids [Waite-3] 100 mg PO DAILY 07/14/18 [History] Aspirin Enteric Coated [Aspirin EC] 81 mg PO DAILY #30 tablet. 07/15/18 [Rx] Atorvastatin [Lipitor] 40 mg PO DAILY #30 tablet 07/15/18 [Rx] Ferrous Sulfate [Iron] 325 mg PO TIDAC #90 tablet 07/15/18 [Rx] Allergies/Adverse Reactions: Allergy/AdvReac Type Severity Reaction Status Date / Time Iodinated Contrast- Oral and Allergy See Verified 07/13/18 14:53 IV Dye Comments Date of admission: 07/13/18 13:46 Primary care physician: Aguilar Billy MD - Constitutional Vitals: Temp Pulse Resp BP Pulse Ox 97.8 F 73 14 120/70 95 07/15/18 06:45 07/15/18 06:45 07/15/18 06:45 07/15/18 06:45 07/15/18 06:45 Exam: General: NAD, good eye contact, well appearing Thoracic: Normal breath sounds b/l, no wheezing or crackles Cardio: Normal S1 and S2, regular rate and rhythm, no murmurs Abdomen: Soft, nontender Extremities: Warm, well perfused. DP pulses 2+ b/l. No edema. Skin: Intact. No rashes, bruises, or ulcers Neuro: Awake, fully oriented. Speech fluent. CNII-XII grossly intact. Moving all extremities spontaneously. No focal deficits. - Patient Status Disposition: Home, Self-Care Condition: Fair Overall status at discharge: patient is back to baseline - Discharge Instructions Follow Up With: Aguilar Billy MD [Primary Care Provider] - - Diet and Activity Activity: resume usual activities as tolerated Diet: low salt diet
== END 2018-07-15 10:58 | disposition home or self-care (01) ==
LOC: 3BNU 09:50 → EMEROOARM 09:50 → SUATTDRO 13:46 → 3BNU 14:32
PROVIDERS: ADMIT Internal Medicine Nephrology; ATTEND Internal Medicine

== ENCOUNTER 2021-01-04 19:26 | Inpatient (IN) ==
[2021-01-04 20:15] LABS: Basophils % 0.1 %; Hematocrit 39.7 % (35.3-44.9); Hemoglobin 12.9 g/dL (11.5-15.4); Immature Granulocytes % 1.9 % (0-4); Lymphocytes # 1.1 K/mcL (0.6-4.6); Lymphocytes % 16.8 %; Mean Corpuscular HGB Conc 32.5 g/dL (31.6-35.5); Mean Corpuscular Hemoglobin 28.2 pg (28.0-33.3); Mean Corpuscular Volume 86.9 fL (83.0-100.0); Mean Platelet Volume 11.3 fL (9.4-12.4); Monocytes # 0.4 K/mcL (0.0-1.3); Monocytes % 5.8 %; Neutrophils # 5.1 K/mcL (1.6-8.9); Platelet Count 200 K/mcL (140-400); Red Blood Count 4.57 M/mcL (3.82-4.97); Segmented Neutrophils % 75.4 %; White Blood Count 6.7 K/mcL (4.3-11.1)
[2021-01-04 20:21] LABS: VBG HCO3 21 mEq/L (21-27); VBG PCO2 34 mmHg (41-51); VBG PH 7.41 pH Units (7.32-7.42); VBG PO2 74 mmHg (25-50)
[2021-01-04 20:24] LABS: Prothrombin Time 10.9 Seconds (9.4-12.1)
[2021-01-04 20:26] LABS: Activated Partial Thrombo Time 35.2 Seconds (26.0-36.0)
[2021-01-04 20:44] LABS: Albumin 3.6 g/dL (3.5-5.7); Albumin/Globulin Ratio 0.9 (1.1-2.2); Bilirubin,Indirect 0.3 mg/dL (0.0-1.0); Bilirubin,Total 0.3 mg/dL (0.3-1.0); Magnesium 1.7 mg/dL (1.6-2.6); Phosphorous 2.8 mg/dL (2.7-4.5); Potassium 5.6 mEq/L (3.5-5.1); Total Protein 7.6 g/dL (6.4-8.9); Troponin I 0.08 ng/mL (< 0.04)
[2021-01-04] MEDS ORDERED: *HR* Heparin 5,000 UNIT/ML VIAL IVP ONE (21:12)
[2021-01-04] MEDS ORDERED: *HR* Heparin 5,000 UNIT/ML VIAL IVP PRN ×2 (21:12)
[2021-01-04] MEDS ORDERED: Heparin 25,000UNIT/250ML 1/2NS 25,000 UNIT/250 ML IV.SOLN IVC SCH (21:15)
[2021-01-04 22:19] LABS: Influenza A PCR Negative (Negative); Influenza B PCR Negative (Negative); Resp. Syncytial Virus PCR Negative (Negative)
[2021-01-04 22:32] LABS: SARS-CoV-2 by PCR (In House) Positive (Negative)
[2021-01-04] MEDS ORDERED: Naloxone 0.4 MG/ML INJ IVP PRN (23:31)
[2021-01-05] MEDS ORDERED: D5% in Water 1,000 ML IVC PRN (00:02)
[2021-01-05] MEDS ORDERED: *HR* Dextrose 50 % in Water (Syg) 50 ML SYRINGE IVP PRN (00:02)
[2021-01-05] MEDS ORDERED: Dextrose Gel 15 GM/37.5 ML TUBE PO PRN ×2 (00:02)
[2021-01-05] MEDS ORDERED: Remdesivir 200 MG in 0.9 % Sodium Chloride 100 ML IVPB ONE (00:05)
[2021-01-05] MEDS ORDERED: cloNIDine HCL 0.1 MG TABLET PO PRN (00:25)
[2021-01-05] MEDS ORDERED: 0.9 % Sodium Chloride 1,000 ML IVC SCH (00:30)
[2021-01-05 03:33] LABS: Basophils % 0.3 %; Hematocrit 35.3 % (35.3-44.9); Hemoglobin 11.4 g/dL (11.5-15.4); Immature Granulocytes % 2.1 % (0-4); Lymphocytes # 0.8 K/mcL (0.6-4.6); Lymphocytes % 12.1 %; Mean Corpuscular HGB Conc 32.3 g/dL (31.6-35.5); Mean Corpuscular Hemoglobin 28.1 pg (28.0-33.3); Mean Corpuscular Volume 86.9 fL (83.0-100.0); Mean Platelet Volume 11.4 fL (9.4-12.4); Monocytes # 0.5 K/mcL (0.0-1.3); Monocytes % 8.1 %; Neutrophils # 4.8 K/mcL (1.6-8.9); Platelet Count 206 K/mcL (140-400); Red Blood Count 4.06 M/mcL (3.82-4.97); Red Cell Distribution Width 13.8 % (11.5-14.5); Segmented Neutrophils % 77.4 %; White Blood Count 6.2 K/mcL (4.3-11.1)
[2021-01-05 03:47] LABS: INR 1.2; Prothrombin Time 12.9 Seconds (9.4-12.1)
[2021-01-05 03:49] LABS: Heparin anti-factor XA UFH 1.73 IU/mL (0.30-0.70)
[2021-01-05 03:53] LABS: Albumin 3.4 g/dL (3.5-5.7); Bilirubin,Indirect 0.3 mg/dL (0.0-1.0); Bilirubin,Total 0.3 mg/dL (0.3-1.0); Calcium 8.8 mg/dL (8.6-10.3); Globulin 3.5 g/dL (2.4-3.5); Potassium 5.7 mEq/L (3.5-5.1); Total Protein 6.9 g/dL (6.4-8.9)
[2021-01-05] MEDS: Ipratropium 1 PUFF INHALER IH SCH ×4 (03:56→23:47)
[2021-01-05] MEDS ORDERED: SODIUM ZIRCONIUM CYCLOSILICATE 5 GM POWD.PACK PO ONE (07:35)
[2021-01-05] MEDS: Insulin LISPRO 300 UNITS/3 ML VIAL SUBQ SCH ×3 (08:41→17:47)
[2021-01-05] MEDS ORDERED: Saliva Stimulant 44.3ml BOTTLE PO PRN (13:09)
[2021-01-05] MEDS: *HR* Enoxaparin 40 MG/0.4 ML SYRINGE SQ SCH (14:29)
[2021-01-05 14:56] LABS: Troponin I 0.05 ng/mL (< 0.04)
[2021-01-05 16:47] LABS: Estimated Average Glucose 183 mg/dl
[2021-01-05] MEDS: carvediloL 6.25 MG TABLET PO SCH (17:46)
[2021-01-05] MEDS: Saline Nasal Spray 44 ML BOTTLE NS SCH ×3 (18:59→22:04)
[2021-01-05] MEDS: Artificial Tears SOLN 15 ML BOTTLE BOTH EYES SCH ×2 (18:59→22:06)
[2021-01-05] MEDS ORDERED: Insulin LISPRO 300 UNITS/3 ML VIAL SUBQ SCH (21:00)
[2021-01-05] MEDS ORDERED: Insulin DETEMIR 100 UNIT/ML X5UNITS SUBQ SCH (21:00)
[2021-01-05] MEDS: Chlorhexidine Rinse 15 ML MOUTHWASH MM SCH (22:04)
[2021-01-05] MEDS: carBAMazepine 200 MG TABLET PO SCH (22:41)
[2021-01-06] MEDS: Ipratropium 1 PUFF INHALER IH SCH ×7 (00:06→23:59)
[2021-01-06] MEDS: Remdesivir 100 MG in 0.9 % Sodium Chloride 100 ML IVPB SCH (01:10)
[2021-01-06] MEDS: Saline Nasal Spray 44 ML BOTTLE NS SCH ×6 (01:50→21:00)
[2021-01-06] MEDS: Artificial Tears SOLN 15 ML BOTTLE BOTH EYES SCH ×3 (09:57→21:00)
[2021-01-06] MEDS: Insulin LISPRO 300 UNITS/3 ML VIAL SUBQ SCH ×3 (09:57→17:00)
[2021-01-06] MEDS: carvediloL 6.25 MG TABLET PO SCH ×2 (09:57→15:55)
[2021-01-06] MEDS: Aspirin Enteric Coated 81 MG Tablet PO SCH (09:58)
[2021-01-06] MEDS: carBAMazepine 200 MG TABLET PO SCH ×2 (09:58→21:00)
[2021-01-06] MEDS: *HR* Enoxaparin 40 MG/0.4 ML SYRINGE SQ SCH (09:58)
[2021-01-06] MEDS: Multivit/Ca/Min/Fe/FA 1 TAB TABLET PO SCH (09:58)
[2021-01-06] MEDS: Cholecalciferol (D-3) 1,000 UNIT (25MCG) TABLET PO SCH (09:58)
[2021-01-06] MEDS: Chlorhexidine Rinse 15 ML MOUTHWASH MM SCH ×2 (09:58→21:00)
[2021-01-06 13:28] LABS: Albumin 3.6 g/dL (3.5-5.7); Bilirubin,Total 0.2 mg/dL (0.3-1.0); Calcium 9.4 mg/dL (8.6-10.3); Chol/HDL Ratio 3.7 (0-4.9); Globulin 3.7 g/dL (2.4-3.5); Magnesium 1.8 mg/dL (1.6-2.6); Phosphorous 2.8 mg/dL (2.7-4.5); Potassium 5.8 mEq/L (3.5-5.1); Total Protein 7.3 g/dL (6.4-8.9)
[2021-01-06] MEDS ORDERED: SODIUM ZIRCONIUM CYCLOSILICATE 5 GM POWD.PACK PO ONE (13:35)
[2021-01-06 14:17] LABS: Basophils % 0.4 %; Hematocrit 37.3 % (35.3-44.9); Hemoglobin 12.2 g/dL (11.5-15.4); Immature Granulocytes % 6.3 % (0-4); Lymphocytes # 0.7 K/mcL (0.6-4.6); Lymphocytes % 13.6 %; Mean Corpuscular HGB Conc 32.7 g/dL (31.6-35.5); Mean Corpuscular Hemoglobin 28.6 pg (28.0-33.3); Mean Corpuscular Volume 87.4 fL (83.0-100.0); Monocytes # 0.4 K/mcL (0.0-1.3); Monocytes % 7.1 %; Neutrophils # 3.9 K/mcL (1.6-8.9); Platelet Count 307 K/mcL (140-400); Red Blood Count 4.27 M/mcL (3.82-4.97); Red Cell Distribution Width 13.9 % (11.5-14.5); Segmented Neutrophils % 72.6 %; White Blood Count 5.4 K/mcL (4.3-11.1)
[2021-01-06 15:14] LABS: Platelet Estimate Normal (Normal)
[2021-01-06] MEDS: Insulin DETEMIR 100 UNIT/ML X5UNITS SUBQ SCH (21:00)
[2021-01-07 01:24] LABS: Basophils % 0.4 %; Eosinophils % 0.1 %; Hematocrit 36.8 % (35.3-44.9); Hemoglobin 11.9 g/dL (11.5-15.4); Immature Granulocytes % 4.1 % (0-4); Lymphocytes # 1.5 K/mcL (0.6-4.6); Mean Corpuscular HGB Conc 32.3 g/dL (31.6-35.5); Mean Corpuscular Hemoglobin 27.9 pg (28.0-33.3); Mean Corpuscular Volume 86.2 fL (83.0-100.0); Mean Platelet Volume 10.3 fL (9.4-12.4); Monocytes # 0.3 K/mcL (0.0-1.3); Monocytes % 3.9 %; Neutrophils # 4.9 K/mcL (1.6-8.9); Platelet Count 356 K/mcL (140-400); Red Blood Count 4.27 M/mcL (3.82-4.97); Red Cell Distribution Width 13.6 % (11.5-14.5); Segmented Neutrophils % 69.5 %
[2021-01-07] MEDS: Insulin LISPRO 300 UNITS/3 ML VIAL SUBQ SCH ×5 (01:33→20:59)
[2021-01-07] MEDS: Remdesivir 100 MG in 0.9 % Sodium Chloride 100 ML IVPB SCH (01:36)
[2021-01-07 01:54] LABS: Albumin 3.5 g/dL (3.5-5.7); Albumin/Globulin Ratio 0.9 (1.1-2.2); Bilirubin,Total 0.3 mg/dL (0.3-1.0); Calcium 9.7 mg/dL (8.6-10.3); Globulin 3.8 g/dL (2.4-3.5); Magnesium 1.7 mg/dL (1.6-2.6); Potassium 4.6 mEq/L (3.5-5.1); Total Protein 7.3 g/dL (6.4-8.9)
[2021-01-07] MEDS: Ipratropium 1 PUFF INHALER IH SCH ×6 (03:34→23:27)
[2021-01-07] MEDS: Saline Nasal Spray 44 ML BOTTLE NS SCH ×6 (04:56→21:00)
[2021-01-07] MEDS: Cholecalciferol (D-3) 1,000 UNIT (25MCG) TABLET PO SCH (09:02)
[2021-01-07] MEDS: Aspirin Enteric Coated 81 MG Tablet PO SCH (09:02)
[2021-01-07] MEDS: Chlorhexidine Rinse 15 ML MOUTHWASH MM SCH ×2 (09:02→20:58)
[2021-01-07] MEDS: Multivit/Ca/Min/Fe/FA 1 TAB TABLET PO SCH (09:02)
[2021-01-07] MEDS: carBAMazepine 200 MG TABLET PO SCH ×2 (09:02→20:59)
[2021-01-07] MEDS: carvediloL 6.25 MG TABLET PO SCH ×2 (09:03→16:25)
[2021-01-07] MEDS: *HR* Enoxaparin 40 MG/0.4 ML SYRINGE SQ SCH (09:04)
[2021-01-07] MEDS: Insulin DETEMIR 100 UNIT/ML X5UNITS SUBQ SCH ×2 (09:04→20:58)
[2021-01-07] MEDS: Artificial Tears SOLN 15 ML BOTTLE BOTH EYES SCH ×4 (09:05→20:59)
[2021-01-08] MEDS: Remdesivir 100 MG in 0.9 % Sodium Chloride 100 ML IVPB SCH (00:14)
[2021-01-08] MEDS: Saline Nasal Spray 44 ML BOTTLE NS SCH ×6 (00:14→21:02)
[2021-01-08] MEDS: Ipratropium 1 PUFF INHALER IH SCH ×6 (03:43→23:31)
[2021-01-08] MEDS ORDERED: *HR* LORazepam 2 MG/ML VIAL IVP ONE (06:30)
[2021-01-08 07:56] LABS: Basophils % 0.2 %; Eosinophils # 0.1 K/mcL (0.0-0.6); Eosinophils % 0.7 %; Hematocrit 34.7 % (35.3-44.9); Hemoglobin 11.7 g/dL (11.5-15.4); Immature Granulocytes % 1.7 % (0-4); Lymphocytes # 1.4 K/mcL (0.6-4.6); Lymphocytes % 16.4 %; Mean Corpuscular HGB Conc 33.7 g/dL (31.6-35.5); Mean Corpuscular Hemoglobin 28.3 pg (28.0-33.3); Monocytes # 0.6 K/mcL (0.0-1.3); Monocytes % 6.5 %; Neutrophils # 6.3 K/mcL (1.6-8.9); Platelet Count 199 K/mcL (140-400); Red Blood Count 4.13 M/mcL (3.82-4.97); Red Cell Distribution Width 13.3 % (11.5-14.5); Segmented Neutrophils % 74.5 %; White Blood Count 8.4 K/mcL (4.3-11.1)
[2021-01-08 08:10] LABS: Alanine Aminotransferase 19 Units/L (7-52); Albumin 3.3 g/dL (3.5-5.7); Alkaline Phosphatase 91 Units/L (34-104); Aspartate Amino Transferase 27 Units/L (13-39); BUN/Creatinine Ratio 28 (6-26); Bilirubin,Total 0.3 mg/dL (0.3-1.0); Blood Urea Nitrogen 31 mg/dL (6-20); Calcium 9.3 mg/dL (8.6-10.3); Carbon Dioxide 23 mEq/L (23-29); Chloride 100 mEq/L (98-107); Globulin 3.2 g/dL (2.4-3.5); Glucose 198 mg/dL (70-105); Lactate Dehydrogenase 491 Units/L (140-271); Magnesium 1.4 mg/dL (1.6-2.6); Osmolality,Calculated 288 (280-300); Phosphorous 3.5 mg/dL (2.7-4.5); Potassium 4.3 mEq/L (3.5-5.1); Sodium 133 mEq/L (136-145); Total Protein 6.5 g/dL (6.4-8.9); eGFR For African Americans > 60 (> 60); eGFR For Non-African Americans 52 (> 60)
[2021-01-08 08:26] LABS: Ferritin 298 ng/mL (10-120)
[2021-01-08] MEDS: *HR* Enoxaparin 40 MG/0.4 ML SYRINGE SQ SCH (08:32)
[2021-01-08] MEDS: Insulin LISPRO 300 UNITS/3 ML VIAL SUBQ SCH ×4 (08:32→21:01)
[2021-01-08] MEDS: Insulin DETEMIR 100 UNIT/ML X5UNITS SUBQ SCH ×2 (08:32→21:00)
[2021-01-08] MEDS: Multivit/Ca/Min/Fe/FA 1 TAB TABLET PO SCH (08:35)
[2021-01-08] MEDS: carBAMazepine 200 MG TABLET PO SCH ×2 (08:35→21:00)
[2021-01-08] MEDS: Cholecalciferol (D-3) 1,000 UNIT (25MCG) TABLET PO SCH (08:35)
[2021-01-08] MEDS: carvediloL 6.25 MG TABLET PO SCH ×2 (08:35→16:45)
[2021-01-08] MEDS: Aspirin Enteric Coated 81 MG Tablet PO SCH (08:35)
[2021-01-08] MEDS: Chlorhexidine Rinse 15 ML MOUTHWASH MM SCH ×2 (08:36→21:00)
[2021-01-08] MEDS: Artificial Tears SOLN 15 ML BOTTLE BOTH EYES SCH ×4 (08:36→21:00)
[2021-01-08 13:04] LABS: C-Reactive Protein 24 mg/L (Less than 10)
[2021-01-08] MEDS ORDERED: *HR* Enoxaparin 80 MG/0.8 ML SYRINGE SQ ONE (13:26)
[2021-01-08] MEDS: *HR* LORazepam 0.5 MG TABLET PO PRN (13:46)
[2021-01-08] MEDS: *HR* Enoxaparin 120 MG/0.8 ML SYRINGE SQ SCH (21:01)
[2021-01-09] MEDS: Remdesivir 100 MG in 0.9 % Sodium Chloride 100 ML IVPB SCH (00:03)
[2021-01-09] MEDS: *HR* LORazepam 0.5 MG TABLET PO PRN ×2 (01:25→11:52)
[2021-01-09] MEDS: Saline Nasal Spray 44 ML BOTTLE NS SCH ×6 (01:26→21:26)
[2021-01-09] MEDS: Ipratropium 1 PUFF INHALER IH SCH ×6 (03:35→23:26)
[2021-01-09] MEDS ORDERED: *HR* LORazepam 2 MG/ML VIAL IVP ONE (05:12)
[2021-01-09] MEDS: Insulin LISPRO 300 UNITS/3 ML VIAL SUBQ SCH ×4 (07:37→21:25)
[2021-01-09] MEDS: Cholecalciferol (D-3) 1,000 UNIT (25MCG) TABLET PO SCH (09:23)
[2021-01-09] MEDS: Multivit/Ca/Min/Fe/FA 1 TAB TABLET PO SCH (09:23)
[2021-01-09] MEDS: carvediloL 6.25 MG TABLET PO SCH ×2 (09:23→17:05)
[2021-01-09] MEDS: *HR* Enoxaparin 120 MG/0.8 ML SYRINGE SQ SCH ×2 (09:23→21:22)
[2021-01-09] MEDS: Aspirin Enteric Coated 81 MG Tablet PO SCH (09:23)
[2021-01-09] MEDS: Chlorhexidine Rinse 15 ML MOUTHWASH MM SCH ×2 (09:23→21:22)
[2021-01-09] MEDS: carBAMazepine 200 MG TABLET PO SCH ×2 (09:24→21:24)
[2021-01-09] MEDS: Insulin DETEMIR 100 UNIT/ML X5UNITS SUBQ SCH ×2 (09:24→21:23)
[2021-01-09] MEDS: Artificial Tears SOLN 15 ML BOTTLE BOTH EYES SCH ×4 (09:24→21:25)
[2021-01-10 02:31] LABS: Basophils % 0.2 %; Eosinophils # 0.3 K/mcL (0.0-0.6); Eosinophils % 3.3 %; Hematocrit 34.9 % (35.3-44.9); Hemoglobin 11.9 g/dL (11.5-15.4); Lymphocytes # 1.4 K/mcL (0.6-4.6); Lymphocytes % 15.5 %; Mean Corpuscular HGB Conc 34.1 g/dL (31.6-35.5); Mean Corpuscular Hemoglobin 28.3 pg (28.0-33.3); Mean Corpuscular Volume 82.9 fL (83.0-100.0); Mean Platelet Volume 10.4 fL (9.4-12.4); Monocytes # 0.3 K/mcL (0.0-1.3); Monocytes % 3.2 %; Neutrophils # 6.6 K/mcL (1.6-8.9); Platelet Count 240 K/mcL (140-400); Red Blood Count 4.21 M/mcL (3.82-4.97); Red Cell Distribution Width 13.1 % (11.5-14.5); Segmented Neutrophils % 72.8 %; White Blood Count 9.1 K/mcL (4.3-11.1)
[2021-01-10 02:49] LABS: Fibrinogen 289 mg/dL (169-393)
[2021-01-10 02:53] LABS: Alanine Aminotransferase 16 Units/L (7-52); Albumin 3.2 g/dL (3.5-5.7); Alkaline Phosphatase 90 Units/L (34-104); Aspartate Amino Transferase 31 Units/L (13-39); BUN/Creatinine Ratio 31 (6-26); Bilirubin,Total 0.3 mg/dL (0.3-1.0); Blood Urea Nitrogen 31 mg/dL (6-20); C-Reactive Protein 16 mg/L (Less than 10); Calcium 9.2 mg/dL (8.6-10.3); Carbon Dioxide 23 mEq/L (23-29); Chloride 99 mEq/L (98-107); Globulin 3.2 g/dL (2.4-3.5); Glucose 143 mg/dL (70-105); Lactate Dehydrogenase 517 Units/L (140-271); Osmolality,Calculated 283 (280-300); Sodium 132 mEq/L (136-145); Total Protein 6.4 g/dL (6.4-8.9); eGFR For African Americans > 60 (> 60); eGFR For Non-African Americans 57 (> 60)
[2021-01-10 03:00] LABS: D-Dimer 7488 ng/mLFEU (0-500)
[2021-01-10 03:08] LABS: Ferritin 268 ng/mL (10-120)
[2021-01-10] MEDS: Ipratropium 1 PUFF INHALER IH SCH ×6 (04:04→23:54)
[2021-01-10] MEDS: Saline Nasal Spray 44 ML BOTTLE NS SCH ×6 (04:48→23:52)
[2021-01-10] MEDS: *HR* LORazepam 0.5 MG TABLET PO PRN ×2 (05:38→21:50)
[2021-01-10] MEDS: Cholecalciferol (D-3) 1,000 UNIT (25MCG) TABLET PO SCH (07:48)
[2021-01-10] MEDS: carvediloL 6.25 MG TABLET PO SCH ×2 (07:48→16:49)
[2021-01-10] MEDS: Multivit/Ca/Min/Fe/FA 1 TAB TABLET PO SCH (07:48)
[2021-01-10] MEDS: Chlorhexidine Rinse 15 ML MOUTHWASH MM SCH ×2 (07:49→21:49)
[2021-01-10] MEDS: carBAMazepine 200 MG TABLET PO SCH ×2 (07:49→21:50)
[2021-01-10] MEDS: *HR* Enoxaparin 120 MG/0.8 ML SYRINGE SQ SCH ×2 (07:49→21:50)
[2021-01-10] MEDS: Aspirin Enteric Coated 81 MG Tablet PO SCH (07:49)
[2021-01-10] MEDS: Insulin DETEMIR 100 UNIT/ML X5UNITS SUBQ SCH ×2 (07:50→21:49)
[2021-01-10] MEDS: Insulin LISPRO 300 UNITS/3 ML VIAL SUBQ SCH ×4 (07:50→21:49)
[2021-01-10] MEDS: Dexamethasone Sodium Phos/PF 10 MG/ML VIAL IVP SCH (07:55)
[2021-01-10] MEDS: Artificial Tears SOLN 15 ML BOTTLE BOTH EYES SCH ×4 (08:01→21:30)
[2021-01-10] MEDS: Melatonin 3 MG TABLET PO PRN (21:50)
[2021-01-11] MEDS: Saline Nasal Spray 44 ML BOTTLE NS SCH ×6 (01:15→21:09)
[2021-01-11 03:20] LABS: Basophils % 0.2 %; Eosinophils # 0.3 K/mcL (0.0-0.6); Eosinophils % 2.7 %; Hematocrit 33.7 % (35.3-44.9); Hemoglobin 11.7 g/dL (11.5-15.4); Immature Granulocytes % 3.2 % (0-4); Lymphocytes # 1.4 K/mcL (0.6-4.6); Lymphocytes % 11.7 %; Mean Corpuscular HGB Conc 34.7 g/dL (31.6-35.5); Mean Corpuscular Hemoglobin 28.7 pg (28.0-33.3); Mean Corpuscular Volume 82.8 fL (83.0-100.0); Mean Platelet Volume 10.5 fL (9.4-12.4); Monocytes # 0.5 K/mcL (0.0-1.3); Monocytes % 3.9 %; Neutrophils # 9.1 K/mcL (1.6-8.9); Platelet Count 267 K/mcL (140-400); Red Blood Count 4.07 M/mcL (3.82-4.97); Segmented Neutrophils % 78.3 %; White Blood Count 11.6 K/mcL (4.3-11.1)
[2021-01-11 03:27] LABS: Fibrinogen 326 mg/dL (169-393)
[2021-01-11 03:30] LABS: D-Dimer 4245 ng/mLFEU (0-500)
[2021-01-11 03:41] LABS: Alanine Aminotransferase 17 Units/L (7-52); Albumin 3.2 g/dL (3.5-5.7); Alkaline Phosphatase 92 Units/L (34-104); Aspartate Amino Transferase 32 Units/L (13-39); BUN/Creatinine Ratio 32 (6-26); Bilirubin,Total 0.3 mg/dL (0.3-1.0); Blood Urea Nitrogen 32 mg/dL (6-20); C-Reactive Protein 22 mg/L (Less than 10); Calcium 9.2 mg/dL (8.6-10.3); Carbon Dioxide 23 mEq/L (23-29); Chloride 97 mEq/L (98-107); Globulin 3.2 g/dL (2.4-3.5); Glucose 157 mg/dL (70-105); Lactate Dehydrogenase 531 Units/L (140-271); Osmolality,Calculated 282 (280-300); Potassium 3.9 mEq/L (3.5-5.1); Sodium 131 mEq/L (136-145); Total Protein 6.4 g/dL (6.4-8.9); eGFR For African Americans > 60 (> 60); eGFR For Non-African Americans 57 (> 60)
[2021-01-11] MEDS: Ipratropium 1 PUFF INHALER IH SCH ×6 (03:46→23:59)
[2021-01-11 03:58] LABS: Ferritin 252 ng/mL (10-120)
[2021-01-11] MEDS: Insulin LISPRO 300 UNITS/3 ML VIAL SUBQ SCH ×4 (08:27→21:10)
[2021-01-11] MEDS: Aspirin Enteric Coated 81 MG Tablet PO SCH (08:36)
[2021-01-11] MEDS: carBAMazepine 200 MG TABLET PO SCH ×2 (08:36→21:08)
[2021-01-11] MEDS: carvediloL 6.25 MG TABLET PO SCH ×2 (08:37→17:14)
[2021-01-11] MEDS: Multivit/Ca/Min/Fe/FA 1 TAB TABLET PO SCH (08:37)
[2021-01-11] MEDS: Insulin DETEMIR 100 UNIT/ML X5UNITS SUBQ SCH ×2 (08:37→21:10)
[2021-01-11] MEDS: Chlorhexidine Rinse 15 ML MOUTHWASH MM SCH ×2 (08:38→21:09)
[2021-01-11] MEDS: Artificial Tears SOLN 15 ML BOTTLE BOTH EYES SCH ×4 (08:38→21:09)
[2021-01-11] MEDS: Dexamethasone Sodium Phos/PF 10 MG/ML VIAL IVP SCH (08:38)
[2021-01-11] MEDS: *HR* Enoxaparin 120 MG/0.8 ML SYRINGE SQ SCH ×2 (08:39→21:09)
[2021-01-11] MEDS: Cholecalciferol (D-3) 1,000 UNIT (25MCG) TABLET PO SCH (08:39)
[2021-01-11] MEDS ORDERED: Dexamethasone Sodium Phos/PF 10 MG/ML VIAL IVP SCH (09:00)
[2021-01-11] MEDS: Furosemide 20 MG TABLET PO SCH (15:09)
[2021-01-11] MEDS: cloNIDine HCL 0.1 MG TABLET PO SCH ×2 (15:09→21:08)
[2021-01-11] MEDS: *HR* LORazepam 0.5 MG TABLET PO PRN (21:08)
[2021-01-11] MEDS: Melatonin 3 MG TABLET PO PRN (21:09)
[2021-01-12] MEDS: Saline Nasal Spray 44 ML BOTTLE NS SCH ×6 (01:20→20:48)
[2021-01-12] MEDS: Ipratropium 1 PUFF INHALER IH SCH ×5 (04:14→20:24)
[2021-01-12 06:14] LABS: Basophils % 0.4 %; Eosinophils # 0.3 K/mcL (0.0-0.6); Eosinophils % 2.7 %; Hematocrit 33.9 % (35.3-44.9); Hemoglobin 11.5 g/dL (11.5-15.4); Lymphocytes # 2.1 K/mcL (0.6-4.6); Lymphocytes % 18.6 %; Mean Corpuscular HGB Conc 33.9 g/dL (31.6-35.5); Mean Corpuscular Volume 82.7 fL (83.0-100.0); Mean Platelet Volume 11.2 fL (9.4-12.4); Monocytes # 0.6 K/mcL (0.0-1.3); Monocytes % 5.3 %; Neutrophils # 7.9 K/mcL (1.6-8.9); Platelet Count 225 K/mcL (140-400); Red Cell Distribution Width 13.1 % (11.5-14.5); White Blood Count 11.4 K/mcL (4.3-11.1)
[2021-01-12 06:42] LABS: Alanine Aminotransferase 21 Units/L (7-52); Albumin 3.2 g/dL (3.5-5.7); Albumin/Globulin Ratio 1.1 (1.1-2.2); Alkaline Phosphatase 95 Units/L (34-104); Aspartate Amino Transferase 40 Units/L (13-39); BUN/Creatinine Ratio 30 (6-26); Bilirubin,Total 0.3 mg/dL (0.3-1.0); Blood Urea Nitrogen 32 mg/dL (6-20); Carbon Dioxide 24 mEq/L (23-29); Chloride 97 mEq/L (98-107); Glucose 162 mg/dL (70-105); Magnesium 1.7 mg/dL (1.6-2.6); Osmolality,Calculated 282 (280-300); Phosphorous 3.8 mg/dL (2.7-4.5); Potassium 4.5 mEq/L (3.5-5.1); Sodium 131 mEq/L (136-145); Total Protein 6.2 g/dL (6.4-8.9); eGFR For African Americans > 60 (> 60); eGFR For Non-African Americans 53 (> 60)
[2021-01-12] MEDS: Insulin LISPRO 300 UNITS/3 ML VIAL SUBQ SCH ×4 (09:20→20:46)
[2021-01-12] MEDS: Insulin DETEMIR 100 UNIT/ML X5UNITS SUBQ SCH (09:21)
[2021-01-12] MEDS: Furosemide 20 MG TABLET PO SCH (09:22)
[2021-01-12] MEDS: Chlorhexidine Rinse 15 ML MOUTHWASH MM SCH ×2 (09:22→20:47)
[2021-01-12] MEDS: Dexamethasone Sodium Phos/PF 10 MG/ML VIAL IVP SCH (09:22)
[2021-01-12] MEDS: cloNIDine HCL 0.1 MG TABLET PO SCH (09:22)
[2021-01-12] MEDS: *HR* Enoxaparin 120 MG/0.8 ML SYRINGE SQ SCH ×2 (09:22→20:45)
[2021-01-12] MEDS: Aspirin Enteric Coated 81 MG Tablet PO SCH (09:22)
[2021-01-12] MEDS: carvediloL 6.25 MG TABLET PO SCH ×2 (09:22→17:15)
[2021-01-12] MEDS: Artificial Tears SOLN 15 ML BOTTLE BOTH EYES SCH ×4 (09:22→20:48)
[2021-01-12] MEDS: Cholecalciferol (D-3) 1,000 UNIT (25MCG) TABLET PO SCH (09:23)
[2021-01-12] MEDS: lisinopriL 20 MG TABLET PO SCH (09:23)
[2021-01-12] MEDS: Multivit/Ca/Min/Fe/FA 1 TAB TABLET PO SCH (09:23)
[2021-01-12] MEDS: carBAMazepine 200 MG TABLET PO SCH ×2 (09:23→20:47)
[2021-01-12] MEDS: *HR* LORazepam 0.5 MG TABLET PO PRN (20:47)
[2021-01-12] MEDS: Melatonin 3 MG TABLET PO PRN (20:47)
[2021-01-12] MEDS ORDERED: Insulin DETEMIR 100 UNIT/ML X5UNITS SUBQ SCH (21:00)
[2021-01-13] MEDS: Ipratropium 1 PUFF INHALER IH SCH ×7 (00:15→23:01)
[2021-01-13] MEDS: Saline Nasal Spray 44 ML BOTTLE NS SCH ×6 (01:15→22:25)
[2021-01-13] MEDS ORDERED: polyethylene glycoL 3350 17 GM POWD.PACK PO PRN (06:24)
[2021-01-13] MEDS: *HR* Enoxaparin 120 MG/0.8 ML SYRINGE SQ SCH (08:06)
[2021-01-13] MEDS: Multivit/Ca/Min/Fe/FA 1 TAB TABLET PO SCH (08:08)
[2021-01-13] MEDS: Aspirin Enteric Coated 81 MG Tablet PO SCH (08:08)
[2021-01-13] MEDS: carBAMazepine 200 MG TABLET PO SCH ×2 (08:08→22:24)
[2021-01-13] MEDS: Furosemide 20 MG TABLET PO SCH (08:09)
[2021-01-13] MEDS: Cholecalciferol (D-3) 1,000 UNIT (25MCG) TABLET PO SCH (08:09)
[2021-01-13] MEDS: Chlorhexidine Rinse 15 ML MOUTHWASH MM SCH ×2 (08:10→22:24)
[2021-01-13] MEDS: Artificial Tears SOLN 15 ML BOTTLE BOTH EYES SCH ×4 (08:11→22:23)
[2021-01-13] MEDS: Insulin LISPRO 300 UNITS/3 ML VIAL SUBQ SCH ×4 (08:13→22:24)
[2021-01-13] MEDS: lisinopriL 20 MG TABLET PO SCH (08:13)
[2021-01-13] MEDS: carvediloL 6.25 MG TABLET PO SCH ×2 (08:15→16:16)
[2021-01-13] MEDS: Dexamethasone Sodium Phos/PF 10 MG/ML VIAL IVP SCH (08:24)
[2021-01-13] MEDS ORDERED: Insulin DETEMIR 100 UNIT/ML X5UNITS SUBQ SCH (09:00)
[2021-01-13] MEDS: *HR* Enoxaparin 40 MG/0.4 ML SYRINGE SQ SCH (09:19)
[2021-01-13 09:26] LABS: Ferritin 263 ng/mL (10-120)
[2021-01-13 09:27] LABS: Alanine Aminotransferase 21 Units/L (7-52); Albumin 3.2 g/dL (3.5-5.7); Albumin/Globulin Ratio 1.1 (1.1-2.2); Alkaline Phosphatase 110 Units/L (34-104); Aspartate Amino Transferase 36 Units/L (13-39); BUN/Creatinine Ratio 33 (6-26); Bilirubin,Total 0.2 mg/dL (0.3-1.0); Blood Urea Nitrogen 33 mg/dL (6-20); C-Reactive Protein 11 mg/L (Less than 10); Calcium 8.8 mg/dL (8.6-10.3); Carbon Dioxide 17 mEq/L (23-29); Chloride 98 mEq/L (98-107); Glucose 222 mg/dL (70-105); Lactate Dehydrogenase 669 Units/L (140-271); Osmolality,Calculated 284 (280-300); Phosphorous 3.6 mg/dL (2.7-4.5); Potassium 4.6 mEq/L (3.5-5.1); Sodium 130 mEq/L (136-145); Total Protein 6.2 g/dL (6.4-8.9); eGFR For African Americans > 60 (> 60); eGFR For Non-African Americans 58 (> 60)
[2021-01-13 09:54] LABS: Magnesium 1.9 mg/dL (1.6-2.6)
[2021-01-13 14:06] LABS: Fibrinogen 346 mg/dL (169-393)
[2021-01-13 14:09] LABS: D-Dimer 2066 ng/mLFEU (0-500)
[2021-01-13 14:16] LABS: Basophils % 0.3 %; Eosinophils # 0.2 K/mcL (0.0-0.6); Hemoglobin 11.1 g/dL (11.5-15.4); Immature Granulocytes % 3.2 % (0-4); Lymphocytes # 0.9 K/mcL (0.6-4.6); Lymphocytes % 6.4 %; Mean Corpuscular HGB Conc 32.6 g/dL (31.6-35.5); Mean Corpuscular Hemoglobin 28.1 pg (28.0-33.3); Mean Corpuscular Volume 86.1 fL (83.0-100.0); Mean Platelet Volume 11.6 fL (9.4-12.4); Monocytes # 0.5 K/mcL (0.0-1.3); Monocytes % 3.7 %; Neutrophils # 12.4 K/mcL (1.6-8.9); Platelet Count 261 K/mcL (140-400); Red Blood Count 3.95 M/mcL (3.82-4.97); Red Cell Distribution Width 13.2 % (11.5-14.5); Segmented Neutrophils % 85.4 %; White Blood Count 14.5 K/mcL (4.3-11.1)
[2021-01-13] MEDS: Insulin DETEMIR 100 UNIT/ML X5UNITS SUBQ SCH (22:24)
[2021-01-14 01:53] LABS: Alanine Aminotransferase 25 Units/L (7-52); Albumin 3.7 g/dL (3.5-5.7); Alkaline Phosphatase 104 Units/L (34-104); Aspartate Amino Transferase 34 Units/L (13-39); BUN/Creatinine Ratio 28 (6-26); Bilirubin,Total 0.3 mg/dL (0.3-1.0); Blood Urea Nitrogen 28 mg/dL (6-20); Calcium 9.5 mg/dL (8.6-10.3); Carbon Dioxide 22 mEq/L (23-29); Chloride 97 mEq/L (98-107); Globulin 3.6 g/dL (2.4-3.5); Glucose 186 mg/dL (70-105); Osmolality,Calculated 278 (280-300); Phosphorous 3.5 mg/dL (2.7-4.5); Potassium 4.8 mEq/L (3.5-5.1); Sodium 129 mEq/L (136-145); Total Protein 7.3 g/dL (6.4-8.9); eGFR For African Americans > 60 (> 60); eGFR For Non-African Americans 58 (> 60)
[2021-01-14] MEDS: *HR* LORazepam 0.5 MG TABLET PO PRN ×3 (03:09→20:43)
[2021-01-14] MEDS: Melatonin 3 MG TABLET PO PRN (03:09)
[2021-01-14] MEDS: Ipratropium 1 PUFF INHALER IH SCH ×6 (04:27→23:41)
[2021-01-14] MEDS: Saline Nasal Spray 44 ML BOTTLE NS SCH (05:33)
[2021-01-14] MEDS: *HR* Enoxaparin 40 MG/0.4 ML SYRINGE SQ SCH (06:53)
[2021-01-14] MEDS: Insulin LISPRO 300 UNITS/3 ML VIAL SUBQ SCH ×4 (08:00→21:59)
[2021-01-14 10:19] LABS: Basophils % 0.3 %; Eosinophils # 0.2 K/mcL (0.0-0.6); Eosinophils % 1.4 %; Hematocrit 33.7 % (35.3-44.9); Hemoglobin 11.2 g/dL (11.5-15.4); Immature Granulocytes % 3.3 % (0-4); Lymphocytes # 1.9 K/mcL (0.6-4.6); Lymphocytes % 16.1 %; Mean Corpuscular HGB Conc 33.2 g/dL (31.6-35.5); Mean Corpuscular Hemoglobin 28.6 pg (28.0-33.3); Mean Platelet Volume 10.5 fL (9.4-12.4); Monocytes # 0.9 K/mcL (0.0-1.3); Monocytes % 7.1 %; Neutrophils # 8.6 K/mcL (1.6-8.9); Platelet Count 370 K/mcL (140-400); Red Blood Count 3.92 M/mcL (3.82-4.97); Red Cell Distribution Width 13.5 % (11.5-14.5); Segmented Neutrophils % 71.8 %; White Blood Count 11.9 K/mcL (4.3-11.1)
[2021-01-14] MEDS: Cholecalciferol (D-3) 1,000 UNIT (25MCG) TABLET PO SCH (11:03)
[2021-01-14] MEDS: Furosemide 20 MG TABLET PO SCH (11:03)
[2021-01-14] MEDS: Insulin DETEMIR 100 UNIT/ML X5UNITS SUBQ SCH ×2 (11:03→21:59)
[2021-01-14] MEDS: Aspirin Enteric Coated 81 MG Tablet PO SCH (11:03)
[2021-01-14] MEDS: carvediloL 6.25 MG TABLET PO SCH ×2 (11:03→17:35)
[2021-01-14] MEDS: Chlorhexidine Rinse 15 ML MOUTHWASH MM SCH ×2 (11:04→21:59)
[2021-01-14] MEDS: carBAMazepine 200 MG TABLET PO SCH ×2 (11:04→21:58)
[2021-01-14] MEDS: Multivit/Ca/Min/Fe/FA 1 TAB TABLET PO SCH (11:04)
[2021-01-14] MEDS: Dexamethasone Sodium Phos/PF 10 MG/ML VIAL IVP SCH (11:05)
[2021-01-14] MEDS ORDERED: Saline Nasal Spray 44 ML BOTTLE NS PRN (18:22)
[2021-01-14] MEDS ORDERED: Artificial Tears SOLN 15 ML BOTTLE BOTH EYES PRN (18:22)
[2021-01-15] MEDS: *HR* LORazepam 0.5 MG TABLET PO PRN ×3 (03:58→19:53)
[2021-01-15] MEDS: Ipratropium 1 PUFF INHALER IH SCH ×6 (04:13→23:55)
[2021-01-15] MEDS: *HR* Enoxaparin 40 MG/0.4 ML SYRINGE SQ SCH (05:42)
[2021-01-15] MEDS: Cholecalciferol (D-3) 1,000 UNIT (25MCG) TABLET PO SCH (09:49)
[2021-01-15] MEDS: carvediloL 6.25 MG TABLET PO SCH ×2 (09:49→17:35)
[2021-01-15] MEDS: Aspirin Enteric Coated 81 MG Tablet PO SCH (09:49)
[2021-01-15] MEDS: Multivit/Ca/Min/Fe/FA 1 TAB TABLET PO SCH (09:50)
[2021-01-15] MEDS: Chlorhexidine Rinse 15 ML MOUTHWASH MM SCH ×2 (09:50→19:53)
[2021-01-15] MEDS: carBAMazepine 200 MG TABLET PO SCH ×2 (09:50→19:53)
[2021-01-15] MEDS: Insulin LISPRO 300 UNITS/3 ML VIAL SUBQ SCH ×4 (09:51→19:56)
[2021-01-15] MEDS: Insulin DETEMIR 100 UNIT/ML X5UNITS SUBQ SCH ×2 (09:51→19:55)
[2021-01-15] MEDS: Furosemide 20 MG TABLET PO SCH (10:17)
[2021-01-15] MEDS ORDERED: dexAMETHasone 4 MG TABLET PO SCH (12:30)
[2021-01-15] MEDS: dexAMETHasone 4 MG TABLET PO SCH (17:37)
[2021-01-16] MEDS: Saline Nasal Spray 44 ML BOTTLE NS SCH (03:13)
[2021-01-16] MEDS: Artificial Tears SOLN 15 ML BOTTLE BOTH EYES SCH (03:13)
[2021-01-16] MEDS: Ipratropium 1 PUFF INHALER IH SCH ×5 (04:23→20:45)
[2021-01-16] MEDS: *HR* Enoxaparin 40 MG/0.4 ML SYRINGE SQ SCH (05:53)
[2021-01-16] MEDS: *HR* LORazepam 0.5 MG TABLET PO PRN ×2 (06:15→21:40)
[2021-01-16] MEDS: Chlorhexidine Rinse 15 ML MOUTHWASH MM SCH ×2 (08:39→21:41)
[2021-01-16] MEDS: carBAMazepine 200 MG TABLET PO SCH ×2 (08:39→21:40)
[2021-01-16] MEDS: carvediloL 6.25 MG TABLET PO SCH ×2 (08:39→16:22)
[2021-01-16] MEDS: Multivit/Ca/Min/Fe/FA 1 TAB TABLET PO SCH (08:39)
[2021-01-16] MEDS: Furosemide 20 MG TABLET PO SCH (08:39)
[2021-01-16] MEDS: Aspirin Enteric Coated 81 MG Tablet PO SCH (08:39)
[2021-01-16] MEDS: Cholecalciferol (D-3) 1,000 UNIT (25MCG) TABLET PO SCH (08:39)
[2021-01-16] MEDS: Insulin DETEMIR 100 UNIT/ML X5UNITS SUBQ SCH ×2 (08:40→21:52)
[2021-01-16] MEDS: dexAMETHasone 4 MG TABLET PO SCH (08:40)
[2021-01-16] MEDS: Insulin LISPRO 300 UNITS/3 ML VIAL SUBQ SCH ×4 (08:40→21:51)
[2021-01-16] MEDS: Melatonin 3 MG TABLET PO PRN (21:40)
[2021-01-17] MEDS: Ipratropium 1 PUFF INHALER IH SCH ×5 (00:13→15:53)
[2021-01-17] MEDS: *HR* Enoxaparin 40 MG/0.4 ML SYRINGE SQ SCH (06:05)
[2021-01-17] MEDS: carBAMazepine 200 MG TABLET PO SCH (08:42)
[2021-01-17] MEDS: Cholecalciferol (D-3) 1,000 UNIT (25MCG) TABLET PO SCH (08:42)
[2021-01-17] MEDS: Aspirin Enteric Coated 81 MG Tablet PO SCH (08:42)
[2021-01-17] MEDS: Chlorhexidine Rinse 15 ML MOUTHWASH MM SCH (08:42)
[2021-01-17] MEDS: carvediloL 6.25 MG TABLET PO SCH (08:43)
[2021-01-17] MEDS: Furosemide 20 MG TABLET PO SCH (08:43)
[2021-01-17] MEDS: Multivit/Ca/Min/Fe/FA 1 TAB TABLET PO SCH (08:43)
[2021-01-17] MEDS: dexAMETHasone 4 MG TABLET PO SCH (08:43)
[2021-01-17] MEDS: Insulin LISPRO 300 UNITS/3 ML VIAL SUBQ SCH ×2 (08:43→12:43)
[2021-01-17] MEDS: Insulin DETEMIR 100 UNIT/ML X5UNITS SUBQ SCH (08:53)
[2021-01-17] MEDS: *HR* LORazepam 0.5 MG TABLET PO PRN ×2 (08:53→15:23)
[2021-01-17 15:55] VITALS: BP 119/78; PULSE 77; TEMP 98.4; O2SAT 97
== END 2021-01-17 17:06 | disposition home health service (06) | DRG 137 ==
LOC: 3ANU 19:26 → EMEROOARM 19:26 → SUATTDRO 01-05 00:11 → 3ANU 01-05 01:22 → SUATTDRO 01-05 09:48 → 2NENU 01-05 20:33
PROVIDERS: ADMIT Internal Medicine; ATTEND Internal Medicine